=== PATIENT | female | born 1965 | race Caucasian/White ===

== ENCOUNTER 2022-04-14 13:20 | Emergency (ER) | payer OTHER, SELFPAY ==
--- NOTE | ~2022-04-14 | XR_ITS ---
EXAMINATION: XR foot LT min 3V DATE: 04/14/2022 13:59 INDICATION: Left foot pain, initial encounter TECHNIQUE: Dorsoplantar, lateral, and 2 oblique views of the left foot were obtained. COMPARISON: None. FINDINGS: There is an acute, traumatic, closed, transverse fracture in the proximal neck of the third proximal phalanx. The distal fracture fragment demonstrates approximately 1.5 mm of plantar dislocat ion. No additional acute osseous findings are evident. 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 IMPRESSION: 1. Acute, minimally displaced fracture in the proximal neck of the third proximal phalanx. Reviewed, dictated and finalized at location A. IMPRESSION: 1. Acute, minimally displaced fracture in the proximal neck of the third proxim al phalanx.
[2022-04-14 13:30] VITALS: BP 141/70; PULSE 82; RESP 12; TEMP 36.2; O2SAT 100
[2022-04-14 13:38] VITALS: BP 141/70; PULSE 82; RESP 12; TEMP 36.2; O2SAT 100
--- NOTE | 2022-04-14 14:18 | ED.LOWEXIN ---
HPI - Extremity Injury (Lower) General Chief Complaint: Extremity Injury, Lower Stated Complaint: left 3rd digit toe Time Seen by Provider: 04/14/22 14:18 Source: patient Mode of arrival: ambulatory Limitations: no limitations History of Present Illness HPI Narrative: 56 yo F presents with pain to L middle toe. Is concerned she fractured her toe. States she got up this AM and stubbed her toe. Is not sure what she even hit her toe on. Reports that toe looks bent. Is ambulatory on L foot. Took OTC pain medication prior to arrival. ROM decreased due to pain, distal neurovascular intact. All systems reviewed and negative except as noted above. Related Data Home Medications Medication Instructions Recorded Confirmed alprazolam 0.25 mg tablet 1 tablet PO QID 04/14/22 04/14/22 losartan 100 1 tablet PO DAILY 04/14/22 04/14/22 mg-hydrochlorothiazide 12.5 mg tablet venlafaxine 150 mg 1 cap PO DAILY 04/14/22 04/14/22 capsule,extended release 24 hr Allergies Allergy/AdvReac Type Severity Reaction Status Date / Time No Known Allergies Allergy Verified 04/14/22 13:45 Review of Systems Review of Systems: CONSTITUTIONAL: Denies fever, chills, or sweats. EYES: Denies visual changes, redness, or discharge. ENT: Denies rhinorrhea, congestion, sore throat, or otalgia. CARDIOVASCULAR: Denies chest pain, palpitations, or edema. RESPIRATORY: Denies cough or dyspnea. GASTROINTESTINAL: Denies abdominal pain, nausea, vomiting, or diarrhea. GENITOURINARY: Denies dysuria or hematuria. SKIN: Denies rash or itching. MUSCULOSKELETAL: Reports pain and swelling to left middle toe. NEUROLOGIC: Denies headache, numbness, or weakness. PSYCHIATRIC: Denies anxiety or depression. All other systems reviewed are negative, except as documented in HPI. [facility] Family History Family History (Updated 05/24/15 @ 10:03 by DOCTOR UNKNOWN) Mother Family history of kidney disease Family history of congestive heart failure Other Family history of allergic disorder Family history of cardiovascular disease Family history of malignant neoplasm Social History Social History Smoking status: Current every day smoker Alcohol intake: current Comments At time of signature, agree with nursing past medical, surgical, social and family history. There is no relevant family history pertinent to the presenting complaint. Exam Narrative: GENERAL: This is a well-nourished, well-developed patient, in no apparent distress. HEAD: normocephalic, atraumatic. EYES: PERRL. Sclera clear/white. Vision is grossly intact. EARS: External ears normal NOSE: External nose normal NECK: Neck supple, non-tender without lymphadenopathy, masses or thyromegaly. CARDIOVASCULAR: Regular rate and rhythm without murmurs, gallops, or rubs. RESPIRATORY: Clear to auscultation. Breath sounds equal bilaterally. No wheezes, rales, or rhonchi. SKIN: warm, Dry, intact with no suspicious lesions or rash, good texture and turgor. NEURO: awake, alert, and oriented to person, place and time. There were no obvious focal neurologic abnormalities. EXTREMITIES: Tenderness to proximal phalanx of left middle toe with swelling. Toe appears to be slightly dislocated. Neurovascularly intact. No color change. Course Course Level of Care: Express Care Visit Vital Signs Vital signs: Vital Signs Temperature 36.2 C L 04/14/22 13:30 Pulse Rate 82 04/14/22 13:30 Respiratory Rate 12 04/14/22 13:30 Blood Pressure 141/70 H 04/14/22 13:30 Pulse Oximetry 100 04/14/22 13:30 Temperature 36.2 C L 04/14/22 13:38 Pulse Rate 82 04/14/22 13:38 Respiratory Rate 12 04/14/22 13:38 Blood Pressure 141/70 H 04/14/22 13:38 Pulse Oximetry 100 04/14/22 13:38 Reviewed MDM - Extremity Injury (Lower) MDM Narrative Medical decision making narrative: Discussed x-ray results with patient. Offered crutches and a OCL splint but patient felt that was not necessary.
== END 2022-04-14 14:30 | disposition home or self-care (01) ==
PROVIDERS: Emergency Provider Nurse Practitioner Family
DX: S92.512A Displaced fracture of proximal phalanx of left lesser toe(s), initial encounter for closed fracture (principal); W22.8XXA Striking against or struck by other objects, initial encounter; F17.200 Nicotine dependence, unspecified, uncomplicated; F41.9 Anxiety disorder, unspecified; F32.A Depression, unspecified; I10 Essential (primary) hypertension
CPT/HCPCS: 73630; 99214; G0463

== ENCOUNTER 2022-05-23 09:21 | Outpatient (CLI) | payer OTHER, SELFPAY ==
--- NOTE | ~2022-05-23 | XR_ITS ---
XR foot LT min 3V DATE: 05/23/2022 09:43 INDICATION: Left third toe fracture TECHNIQUE: 4 views COMPARISON: 04/30/2022 left third toe 04/2022 left foot FINDINGS: There is periosteal reaction at the proximal phalanx of the third digit consistent with hea ling, without interval significant change in position or alignment since 04/2022. No other fracture or dislocation. IMPRESSION: Healing fracture of proximal phalanx of third digit Reviewed, dictated and finalized at location A.
== END 2022-05-23 09:22 | disposition home or self-care (01) ==
LOC: ANHIMG 09:25
PROVIDERS: PCP Family Medicine; Visit Provider Physician Assistant Surgical
DX: S92.502D Displaced unspecified fracture of left lesser toe(s), subsequent encounter for fracture with routine healing (principal)
CPT/HCPCS: 73630

== ENCOUNTER 2023-05-25 17:07 | Emergency (ER) | payer OTHER, SELFPAY ==
[2023-05-25 17:20] VITALS: BP 153/113; PULSE 90; RESP 16; TEMP 37.2; O2SAT 98
--- NOTE | 2023-05-25 17:20 | ED.CHESTPAIN ---
HPI - Chest Pain General Chief Complaint: Chest Pain Stated Complaint: chest pain Time Seen by Provider: 05/25/23 17:08 Source: patient History of Present Illness HPI narrative: Patient presents today complaining of sternal chest pain radiating to her back and bilateral jaw for the past hour felix. Denies shortness of breath, abdominal pain, or any additional symptoms. Denies any cardiac history except hypertension. Currently takes losartan/hydrochlorothiazide. Related Data Home Medications Medication Instructions Recorded Confirmed alprazolam 0.25 mg tablet 1 tablet PO QID 04/14/22 05/23/22 losartan 100 1 tablet PO DAILY 04/14/22 05/23/22 mg-hydrochlorothiazide 12.5 mg tablet venlafaxine 150 mg 1 cap PO DAILY 04/14/22 05/23/22 capsule,extended release 24 hr Allergies Allergy/AdvReac Type Severity Reaction Status Date / Time No Known Allergies Allergy Verified 05/23/22 09:53 Review of Systems Review of Systems: CONSTITUTIONAL: Denies body aches, fever, chills, or sweats. EYES: Denies visual changes, redness, or discharge. ENT: Denies rhinorrhea, congestion, sore throat, or otalgia. CARDIOVASCULAR: Denies palpitations, or edema.+ chest pain RESPIRATORY: Denies cough or dyspnea. GASTROINTESTINAL: Denies abdominal pain, nausea, vomiting, or diarrhea. GENITOURINARY: Denies dysuria or hematuria. SKIN: Denies rash, itching, or wounds. MUSCULOSKELETAL: Denies back pain, joint pain, or myalgia. NEUROLOGIC: Denies headache, numbness, tingling, or weakness. PSYCH: Denies depression or anxiety. [facility] Past Medical History Medical History History of bruising easily Hypertension Surgical History Surgical History History of cholecystectomy (~2014) Family History Family History Mother Family history of kidney disease Family history of congestive heart failure Other Family history of allergic disorder Family history of cardiovascular disease Family history of malignant neoplasm Social History Social History Smoking packs per day: 1 Smoking cigarettes per day: 20.0 Smoking status: Current every day smoker Alcohol intake: current Comments At time of signature, I have reviewed and agree with nursing past medical, surgical, social and family history unless otherwise noted. Please see nursing chart for further information. There is no relevant family history pertinent to the presenting complaint Exam Narrative: GENERAL: Ill-appearing, well-nourished, and in no acute distress. HEAD: Normocephalic, atraumatic. EYES: EOMI. No redness or drainage. Conjunctivae normal. ENT: Mucous membranes pink and moist. NECK: Normal AROM. CHEST: No respiratory distress. Clear to auscultation. HEART: Regular rate and rhythm. No murmur appreciated. Normal peripheral pulses. EXTREMITIES: Normal range of motion. No edema. SKIN: Warm, no rash. Capillary refill normal. Normal skin turgor. Diaphoretic NEURO: No focal deficits. Alert and oriented x3. Gait steady. PSYCH: Normal affect. No signs of depression or anxiety. Course Course Emergency Course: ST elevation on EKG. Patient emergently sent to [facility] via EMS. Level of Care: Express Care Visit Transfer Transfered to: [facility]: [facility] and Other Transfer rationale: Chest pain, ST-elevation Accepting physician: Vinh HOPPER - Chest Pain Differential Diagnosis Differential diagnosis: Likely pneumothorax, unstable angina pectoris, st elevation myocardial infarction, chest pain and other (Gastritis, pneumonia) ECG Data EKG #1: Attestation: I personally reviewed and interpreted this ECG as follows: ECG completion date: 05/25/23 ECG completion time: 17:12
--- NOTE | 2023-05-25 17:27 | ECG_ITS ---
Measurements Intervals [place] Rate: 90 P: 54 [place]: 160 QRS: 11 QRSD: 97 T: 35 QT: 326 QTc: 400 Interpretive Statements SINUS RHYTHM VENTRICULAR PREMATURE COMPLEX POSSIBLE LEFT ATRIAL ENLARGEMENT DELAYED PRECORDIAL R/S TRANSITION ANTEROLATERAL ST ELEVATION MYOCARDIAL INJURY- ACUTE BASELINE ARTIFACT- II, III, AVF, V5-V6 ABNORMAL ECG NO PREVIOUS ECG AVAILABLE FOR COMPARISON Electronically Signed On 05-25-2023 18:28:54 CDT by Billy Pat D.O.
--- NOTE | 2023-05-25 17:35 | ED.CHESTPAIN ---
HPI - Chest Pain General Chief Complaint: Chest Pain Stated Complaint: chest pain Time Seen by Provider: 05/25/23 17:08 Source: patient History of Present Illness HPI narrative: Patient is a 57-year-old female who presents to the ER with STEMI. Patient woke up with pain in her jaw at 1630. She then felt to move into her chest and down into her abdomen. It is also moving back into her shoulders bilaterally. No history of VA. She does have history of hypertension. Patient went to an urgent care where she was diagnosed with a STEMI. EMS was contacted and they brought her by ambulance. [employer] Wheel Truer activated in route. Patient reports pain is currently 3/10 and earlier was 9/10. No modifying factors. reports patient did have some jaw pain and abdominal pain over the last week but never any chest pain. Today was different. Related Data Home Medications Medication Instructions Recorded Confirmed alprazolam 0.25 mg tablet 1 tablet PO QID 04/14/22 05/25/23 losartan 100 1 tablet PO DAILY 04/14/22 05/25/23 mg-hydrochlorothiazide 12.5 mg tablet venlafaxine 150 mg 1 cap PO DAILY 04/14/22 05/25/23 capsule,extended release 24 hr Allergies Allergy/AdvReac Type Severity Reaction Status Date / Time No Known Allergies Allergy Verified 05/25/23 17:39 Review of Systems Review of Systems: All systems reviewed & are unremarkable except as noted in HPI and below Constitutional: Constitutional: Denies chills and Denies fever(s) ENT: Denies nasal congestion and Denies sore throat Cardiovascular: Cardiovascular: Reports chest pain, Denies rapid heart rate and Reports radiating jaw, neck or arm pain Respiratory: Respiratory: Denies cough and Denies dyspnea Gastrointestinal: Gastrointestinal: Reports abdominal pain, Denies nausea and Denies vomiting [facility] Past Medical History Medical History History of bruising easily Hypertension Surgical History Surgical History History of cholecystectomy (~2014) Family History Family History Mother Family history of kidney disease Family history of congestive heart failure Other Family history of allergic disorder Family history of cardiovascular disease Family history of malignant neoplasm Social History Social History Smoking packs per day: 1 Smoking cigarettes per day: 20.0 Smoking status: Current every day smoker Alcohol intake: current Exam Narrative: GENERAL: Well-appearing, well-nourished, and in no acute distress. HEAD: Normocephalic, atraumatic. ENT: Mucous membranes moist. NECK: Supple. CHEST: Clear to auscultation. No respiratory distress. HEART: Regular rate and rhythm. Normal peripheral pulses. ABDOMEN: Soft, nontender, nondistended. No pulsatile mass. EXTREMITIES: Normal range of motion. No edema. SKIN: Warm, dry, no rash. NEURO: Alert and oriented x3. PSYCH: Normal mood and affect. Course Vital Signs Vital signs: Vital Signs Temperature 98.9 F 05/25/23 17:20 Pulse Rate 90 05/25/23 17:20 Respiratory Rate 16 05/25/23 17:20 Blood Pressure 153/113 H 05/25/23 17:20 Pulse Oximetry 98 05/25/23 17:20 Oxygen Delivery Room Air 05/25/23 17:20 Temperature 98.9 F 05/25/23 17:20 Pulse Rate 90 05/25/23 17:20 Respiratory Rate 16 05/25/23 17:20 Blood Pressure 153/113 H 05/25/23 17:20 Pulse Oximetry 98 05/25/23 17:20 Oxygen Delivery Room Air 05/25/23 17:20 MDM - Chest Pain ECG Data EKG #1: ECG completion date: 05/25/23 ECG completion time: 17:33 EKG Interpretation: normal rate (89), sinus rhythm, ST depression (Inferior leads), ST elevation (aVL, V4 through V6), normal QRS, normal QT and NL axis Discharge Plan Discharge Cl
== END 2023-05-25 17:15 | disposition short-term general hospital (02) ==
PROVIDERS: Emergency Provider Nurse Practitioner; PCP Family Medicine
DX: R07.9 Chest pain, unspecified (principal); F17.210 Nicotine dependence, cigarettes, uncomplicated; I10 Essential (primary) hypertension; R94.31 Abnormal electrocardiogram [ECG] [EKG]
CPT/HCPCS: 93005; 99215; G0463

== ENCOUNTER 2023-05-25 17:29 | Inpatient (IN) | payer OTHER, SELFPAY ==
[2023-05-25] VITALS (21 sets, daily range): BP systolic 61–160; BP diastolic 37–124; PULSE 62–89; RESP 8–27; TEMP 36.6–36.7; O2SAT 95–100
--- NOTE | ~2023-05-25 | US_ITS ---
EXAMINATION: US arterial duplex LE RT DATE: 05/27/2023 15:45 INDICATION: Right groin hematoma after cardiac catheterization. TECHNIQUE: Multiple grayscale and Doppler ultrasound images of the right groin were obtained. COMPARISON: None FINDINGS: There is a 3.7 x 0.8 x 5.4 cm hematoma superficial to right common femoral artery. Right co mmon femoral artery is patent. No pseudoaneurysm. IMPRESSION: 1. No pseudoaneurysm. Reviewed, dictated and finalized at location A. IMPRESSION: 1. No pseudoaneurysm.
--- NOTE | ~2023-05-25 | US_ITS ---
EXAMINATION: US retroperitoneal duplex ltd DATE: 05/26/2023 12:02 INDICATION: Hypertension. TECHNIQUE: Multiple grayscale, color Doppler, and pulsed Doppler images of the kidneys and renal martell darlene were obtained. COMPARISON: Chest CT 05/25/2023 FINDINGS: The aorta peak systolic velocity was not measured. The right renal artery peak systolic velocity is 1 38 cm/s in the proximal segment, 109 cm/s in the mid segment, and 63 cm/s in the distal segment. The left renal artery peak systolic velocity is 60 cm/s in the proximal segment, 50 cm/s in the mid segme nt, and 180 cm/s in the distal segment. IMPRESSION: 1. No Doppler evidence of renal artery stenosis. The CTA from 05/25/2023 similarly shows no significa nt renal artery stenosis. Reviewed, dictated and finalized at location E. IMPRESSION: 1. No Doppler evidence of renal artery stenosis. The CTA from 05/25/2023 [facility] shows no significant renal artery stenosis.
--- NOTE | ~2023-05-25 | CT_ITS ---
EXAMINATION: CTA chest DATE: 05/25/2023 17:47 INDICATION: Chest pain. TECHNIQUE: Computed tomographic angiography (CTA) of the chest was performed with 100 mL Omnipaque-35 0 intravenous contrast. Automated exposure control and iterative reconstruction technique were employ ed. The dose-length product was 688.24 mGy-cm. Maximum intensity projection 3D-reconstructions of the aorta and other arteries were constructed by the technologist on a separate workstation. COMPARISON: None. FINDINGS: There is mild emphysema. The lungs demonstrate mild atelectasis. No pleural effusion. The h eart size is normal. No pericardial effusion. There is mild aortic atherosclerosis. No aneurysm or di ssection. There is no pulmonary embolus. There are changes of cholecystectomy. There is cortical thin manuel of the kidneys. There is mild thoracic spondylosis. IMPRESSION: 1. Aortic atherosclerosis. No aneurysm or dissection. 2. No pulmonary embolus. 3. Mild emphysema. 4. Mild atrophy of the kidneys. Reviewed, dictated and finalized at location E.
--- NOTE | ~2023-05-25 | US_ITS ---
EXAMINATION: US renal BI DATE: 05/27/2023 15:45 INDICATION: Elevated creatinine. TECHNIQUE: Multiple ultrasound grayscale images of the kidneys were obtained. COMPARISON: Chest CT 05/25/2023 FINDINGS: The right kidney measures 9.4 x 4.8 x 4.8 cm. The left kidney measures 9.2 x 4.6 x 4.9 cm. The kidney s demonstrate normal parenchymal echogenicity. There is cortical thinning of the kidneys. There is no hydronephrosis. The bladder is normal. IMPRESSION: 1. Mild atrophy of the kidneys. No hydronephrosis. Reviewed, dictated and finalized at location A.
--- NOTE | 2023-05-25 17:29 | ECG_ITS ---
Measurements Intervals [place] Rate: 89 P: 61 [place]: 153 QRS: 14 QRSD: 100 T: 25 QT: 347 QTc: 424 Interpretive Statements SINUS RHYTHM POSSIBLE LEFT ATRIAL ENLARGEMENT DELAYED PRECORDIAL R/S TRANSITION ANTEROLATERAL ST ELEVATION MYOCARIDAL INJURY- ACUTE BASELINE ARTIFACT- I, II, III, AVR, AVL, AVF ABNORMAL ECG COMPARED TO ECG 05/25/2023 17:12:35 NO SIGNIFICANT CHANGES Electronically Signed On 05-25-2023 18:31:59 CDT by Billy Pat D.O.
[2023-05-25 17:40] LABS: Basophils Absolute Auto 0.1 K/mm3 (0.0-0.1); Basophils Percent Auto 0.6 % (0.2-1.2); Eosinophils Percent Auto 0.2 % (0-4.4); Hematocrit 48.8 % (37.0-47.0); Hemoglobin 16.2 g/dL (12.0-15.0); Immature Granulocyte Absolute 0.23 K/mm3 (0.00-0.031); Immature Granulocyte Percent A 1.8 % (0-0.5); Lymphocytes Absolute Auto 3.25 K/mm3 (0.9-3.2); Lymphocytes Percent Auto 24.7 % (18.3-44.2); Mean Corpuscular HGB Conc 33.2 g/dl (32-36); Mean Corpuscular Hemoglobin 31.8 pg (26-34); Mean Corpuscular Volume 95.9 fl (80-100); Monocytes Absolute Auto 0.9 K/mm3 (0.1-0.6); Monocytes Percent Auto 6.8 % (2.6-8.5); Neutrophils Absolute Auto 8.7 K/mm3 (1.3-6.7); Neutrophils Percent Auto 65.9 % (45.5-73.1); Platelet Count Result 399 k/mm3 (150-375); Red Blood Count 5.09 M/mm3 (4.2-5.4); Red Cell Distribution Width 13.5 % (11.5-14.5); White Blood Count 13.1 K/mm3 (4.5-10.0)
--- NOTE | 2023-05-25 17:45 | ED.CHESTPAIN ---
HPI - Chest Pain General Chief Complaint: Chest Pain Stated Complaint: CP - STEMI CALLED PER EMS History of Present Illness HPI narrative: Patient is a 57-year-old female who presents to the ER with STEMI.? Patient woke up with pain in her jaw at 1630.? She then felt to move into her chest and down into her abdomen.? It is also moving back into her shoulders bilaterally.? No history of ND.? She does have history of hypertension.? Patient went to an urgent care where she was diagnosed with a STEMI.? EMS was contacted and they brought her by ambulance.? Ticket Collector Or Usher activated in route.? Patient reports pain is currently 01/18 and earlier was 07/21.? No modifying factors.? reports patient did have some jaw pain and abdominal pain over the last week but never any chest pain.? Today was different. Related Data Home Medications Medication Instructions Recorded Confirmed alprazolam 0.25 mg tablet 1 tablet PO QID PRN Anxiety 04/14/22 05/25/23 losartan 100 1 tablet PO DAILY 04/14/22 05/25/23 mg-hydrochlorothiazide 12.5 mg tablet venlafaxine 150 mg 1 cap PO DAILY 04/14/22 05/25/23 capsule,extended release 24 hr Allergies Allergy/AdvReac Type Severity Reaction Status Date / Time No Known Allergies Allergy Verified 05/25/23 17:39 Review of Systems Review of Systems: All systems reviewed & are unremarkable except as noted in HPI and below Constitutional: Constitutional: Denies chills, Denies fatigue and Denies fever(s) ENT: Denies nasal congestion and Denies sore throat Cardiovascular: Cardiovascular: Reports chest pain, Denies rapid heart rate and Reports radiating jaw, neck or arm pain Respiratory: Respiratory: Denies cough and Denies dyspnea Gastrointestinal: Gastrointestinal: Reports abdominal pain, Denies nausea and Denies vomiting Neurologic: Denies focal weakness and Denies numbness PMFSH Past Medical History Medical History History of bruising easily Hypertension Surgical History Surgical History History of cholecystectomy (~2014) Family History Family History Mother Family history of kidney disease Family history of congestive heart failure Other Family history of allergic disorder Family history of cardiovascular disease Family history of malignant neoplasm Social History Social History Smoking packs per day: 1 Smoking cigarettes per day: 20.0 Smoking status: Current every day smoker Alcohol intake: current Exam Narrative: GENERAL: Well-appearing, well-nourished, and in no acute distress. HEAD: Normocephalic, atraumatic. EYES: PERRL and EOMI. ENT: Mucous membranes moist. CHEST: Clear to auscultation. No respiratory distress. HEART: Regular rate and rhythm. Normal peripheral pulses. ABDOMEN: Soft, nontender, nondistended, no pulsatile mass. EXTREMITIES: Normal range of motion. No edema. SKIN: Warm, dry, no rash. NEURO: Alert and oriented x3. PSYCH: Normal mood and affect. Course Course Emergency Course: Patient returned from CT. Discussed with radiology and there is no evidence of dissection. Cath team at bedside. Patient will given oral Brilinta 180 mg as well as IV heparin 4000 units. Patient's also educated on diagnosis and treatment plan. He has been taken to the ICU waiting room. Vital Signs Vital signs: Vital Signs Temperature 97.9 F 05/25/23 17:29 Pulse Rate 89 05/25/23 17:29 Respiratory Rate 18 05/25/23 17:29 Blood Pressure 160/93 H 05/25/23 17:29 Pulse Oximetry 96 05/25/23 17:29 Oxygen Delivery Room Air 05/25/23 17:29 Temperature 97.9 F 05/25/23 17:29 Pulse Rate 88 05/25/23 18:03 Respiratory Rate 20 05/25/23 18:03 Blood Pressure 160/93 H 05/25/23 17:29 Pulse Oxi
[2023-05-25 17:53] LABS: INR 0.8; Prothrombin Time 11.5 Seconds (11.1-14.7)
[2023-05-25 17:54] LABS: Partial Thromboplastin Time 28.5 SECONDS (22.3-36.8)
--- NOTE | 2023-05-25 18:00 | PC.NURSE ---
1757 180mg of Brilinta po and 4000 units of Heparin IV push given prior of sending to mill laborer.
[2023-05-25 18:04] LABS: LDL Cholesterol Direct 126 mg/dL
[2023-05-25 18:18] LABS: Alanine Aminotransferase 27 U/L (6-35); Albumin Level 4.5 g/dL (3.5-5.1); Alkaline Phosphatase 75 U/L (38-126); Anion Gap 9 mmol/L (8-16); Aspartate Amino Transferase 31 U/L (14-36); Bilirubin,Total 0.5 mg/dL (0.2-1.3); Blood Urea Nitrogen 34 mg/dL (7-17); Calcium 10.6 mg/dL (8.4-10.2); Carbon Dioxide 30 mmol/L (22-30); Chloride 99 mmol/L (98-107); Cholesterol 274 mg/dL (0-200); Estimated CRCL calculation 41 ml/min; Estimated Glomerular Filt Rate 36; Glucose 123 mg/dL (65-110); HDL Direct 72 mg/dL; Potassium 4.5 mmol/L (3.4-5.0); Sodium 138 mmol/L (137-145); Triglycerides 200 mg/dL (<150); Troponin I 0.059 ng/mL (0.000-0.034)
--- NOTE | 2023-05-25 19:01 | WPDCARDPROC ---
Cardiac Cath Procedure Note Date of procedure:: 05/25/23 Performing physician:: Tereso Walter MD Indication:: acute myocardial infarction Brief clinical history:: this is a 57-year-old woman without prior cardiac history. She has a history of hypertension smoking. She woke up from a nap this afternoon at her with significant chest pain. 911 was called ECG per EMS is diagnostic of acute anterior wall ND. She was brought to the laborer operator following activation of STEMI. Procedure Procedure performed:: Emergency coronary angiography emergency PCI(IAN) to the proximal LAD left ventriculography Sedation/Medication given:: fentanyl 50 mg Versed 2 mg case start time 6:12 p.m. case end time 6:41 p.m. sedation provided by Elida Saavedra RN, trained observer Access site:: right femoral artery Estimated blood loss:: 30 cc Procedure note:: patient was brought to the cardiac catheterization lab in the emergency setting above. The right femoral triangle was prepared and draped in the normal fashion. Anesthesia was provided with 1% lidocaine infiltrated locally. Using the modified Seldinger technique a 6 Gren[place] sheath was placed into the right femoral artery. After this I used a [place] JR4 to engage inject the right coronary artery orthogonal projections. Then a 6 [place] CLS 3.5 guiding catheter was used to engage the left coronary artery for angiography in multiple projections. The cineangiograms were then reviewed after this PCI of the proximal LAD was recommended and carried out as detailed below. Prior to PCI the patient bolus intravenous bivalirudin. She had received 325 mg of aspirin and 180 mg of Brilinta in the emergency department. Following completion PCI I used a 5 [place] angled pigtail catheter to measure left-sided hemodynamics and perform a left ventriculogram in the [place] projection. procedure was then terminated sheath was sutured into position and the patient was taken to the ICU for post ND PCI recovery. Procedure was well tolerated and uncomplicated. She was no evidence of groin hematoma when she left the cardiac catheterization lab. Findings:: Hemodynamics: Central aortic pressure is 195 over 96 left ventricle 195/8 end-diastolic pressure 42 there is no gradient on pullback across the aortic valve. Left ventricle: There is concentric LVH identified there is akinesis of the anterior wall apex and apical inferior segment. The global ejection fraction is visually estimated at 40%. The mitral valve is competent. The left main coronary artery is large in caliber and widely patent the left anterior descending is a large caliber artery that is 100% occluded proximally. Angiographic appearance of this is consistent with an acute thrombotic occlusion. The circumflex is a moderate caliber giving rise to the marginal branches. The circumflex is remarkable for modest luminal irregularities but no flow-limiting disease was identified. The right coronary artery is very large caliber and dominant to the posterior circulation the right coronary artery is angiographically free of disease. Intervention: I used a 0.014 BMW coronary guidewire to traverse the occlusion of the LAD. The wire was advanced distal to the occlusion and was tracking into a diagonal branch. I then pre-dilated the lesion using a 3 x 20 mm Stoney angioplasty balloon. This restored ALEXX 3 flow in the LAD. I could then in the URDU cranial projection visualize the position of the guidewire. I redirected the guidewire into the LAD proper. Following this the target lesion was stented using a 3.5 x 22 mm Orsiro stent deployed at 12 atmospheres for 60 seconds. At the conclusion of this the LAD was widely patent with no residual stenosis disruption dissection or distal embolization. There was ALEXX 3 flow restored down to the apex. Conclusion:: 1. Right coronary dominant circulation with acute anterior wall myocardial infarc
--- NOTE | 2023-05-25 19:09 | PM.IMHP ---
H&P: HPI History of Present Illness Date/Time: 05/25/23 19:09 Chief Complaint: chest pain Narrative: this is a 57-year-old woman unknown to me prior to this encounter. She is being seen in the cardiac catheterization lab as she is being prepared for emergency angiography in the setting of acute anterior wall [place]. She apparently has a history of hypertension and cigarette smoking and no previous cardiac events. She does not have any history of diabetes or dyslipidemia of which she has been made aware. She states she was taking a nap at her home this afternoon and woke up with significant chest pain. Electrocardiogram done by EMS in the field indicate clear evidence of acute anterior wall [place]. Review of Systems Review of Systems: ROS unobtainable: Yes unobtainable due to medical condition PMFSH Past Medical History Medical History History of bruising easily Hypertension Surgical History Surgical History History of cholecystectomy (~2014) Family History Family History Mother Family history of kidney disease Family history of congestive heart failure Other Family history of allergic disorder Family history of cardiovascular disease Family history of malignant neoplasm Social History Social History Smoking packs per day: 1 Smoking cigarettes per day: 20.0 Smoking status: Current every day smoker Alcohol intake: current Meds Home Medications and Allergies Home Medications Medication Instructions Recorded Confirmed Type alprazolam 0.25 mg tablet 1 tablet PO QID 04/14/22 05/25/23 History losartan 100 1 tablet PO DAILY 04/14/22 05/25/23 History mg-hydrochlorothiazide 12.5 mg tablet venlafaxine 150 mg 1 cap PO DAILY 04/14/22 05/25/23 History capsule,extended release 24 hr Allergies Allergy/AdvReac Type Severity Reaction Status Date / Time No Known Allergies Allergy Verified 05/25/23 17:39 Vital Signs Vital Signs - 24 hr 05/25/23 17:29 05/25/23 17:36 05/25/23 17:38 Temperature 36.6 C Pulse Rate 89 88 Respiratory Rate 18 Blood Pressure 160/93 H Pulse Oximetry 96 99 Oxygen Delivery Room Air Room Air 05/25/23 17:38 05/25/23 18:03 Temperature Pulse Rate 88 Respiratory Rate 20 Blood Pressure Pulse Oximetry 99 99 Oxygen Delivery Room Air Exam Const: General: uncomfortable Other: well-developed well-nourished overweight white female in moderate distress with chest pain HENMT: Mouth: Yes moist mucous membranes Eyes: Sclera: sclerae normal Neck: Neck: supple and no JVD Other: carotid impulses are unremarkable bilateral Resp: Effort & Inspection: normal respiratory effort Auscultation: clear to auscultation bilaterally Cardio: Rate: regular rate Rhythm: regular rhythm Other: PMI nondisplaced first second heart sounds rub S4 is evident GI: GI Palp: Yes Soft to palpation Auscultation: normal bowel sounds Skin: General skin exam: normal color Neuro: Other: alert oriented x3 Extrem: Other: no edema, good distal perfusion H&P: Results Labs Labs: Short CBC 05/25/23 Range/Units 17:35 WBC 13.1 H (4.5-10.0) K/mm3 Hgb 16.2 H (12.0-15.0) g/dL Hct 48.8 H (37.0-47.0) % Plt Count 399 H (150-375) k/mm3 BMP 05/25/23 17:35 Sodium 138 Potassium 4.5 Chloride 99 Carbon Dioxide 30 BUN 34 H Creatinine 1.50 H Glucose 123 H Calcium 10.6 H Cardiac Enzymes 05/25/23 Range/Units 17:35 Troponin I 0.059 H* (0.000-0.034) ng/mL Liver Function 05/25/23 Range/Units 17:35 Total Bilirubin 0.5 (0.2-1.3) mg/dL AST 31 (14-36) U/L ALT 27 (6-35) U/L Alkaline Phosphatase 75 (38-126) U/L Albumin 4.5 (3
--- NOTE | 2023-05-25 19:46 | ADMGEN ---
This patient, Margie Marroquin, was admitted to Intensive Care Unit-5. Patient/family oriented to hospital policies and general routines including ID bracelet, bed and alarms, visiting hours, pain management, procedures, bathroom and other care routines, personal items, smoking policy, room service/diet, and visiting hours. Information on how to activate the Rapid Response Team has been discussed. Patient/Family are encouraged to report perceived risks to care and to ask questions if they do not understand what they are told or what they should do. Arrival time 1909.
--- NOTE | 2023-05-25 20:18 | ECG_ITS ---
Measurements Intervals [place] Rate: 69 P: 53 CO: 169 QRS: 35 QRSD: 102 T: 74 QT: 387 QTc: 416 Interpretive Statements SINUS RHYTHM VENTRICULAR PREMATURE COMPLEX BASELINE ARTIFACT- I II, III, AVR, AVL, AVF, V1-V6 BORDERLINE ECG COMPARED TO ECG 05/25/2023 17:33:25 ACUTE INJURY RESOLVED Electronically Signed On 05-26-2023 8:02:34 CDT by Billy Pat D.O.
[2023-05-25 21:24] LABS: Troponin I > 80.000 ng/mL (0.000-0.034)
[2023-05-25 21:26] LABS: Cholesterol 246 mg/dL (0-200); HDL Direct 67 mg/dL; Triglycerides 170 mg/dL (<150)
[2023-05-25 21:37] LABS: LDL Cholesterol Direct 121 mg/dL
[2023-05-25] MEDS: ONDANSETRON INJ 4 MG/2 ML VIAL IV PUSH (21:52)
[2023-05-25] MEDS: LABETALOL HCL INJ 100 MG/20 ML VIAL 20 MG IV PUSH (21:52)
[2023-05-25] MEDS: SODIUM CHLORIDE 0.9% IV 1,000 ML 999 ML IV CONT (23:35)
[2023-05-26] VITALS (32 sets, daily range): BP systolic 95–158; BP diastolic 58–119; PULSE 62–95; RESP 9–18; TEMP 36.5–36.6; O2SAT 95–100
[2023-05-26 01:38] LABS: Basophils Absolute Auto 0.1 K/mm3 (0.0-0.1); Basophils Percent Auto 0.4 % (0.2-1.2); Eosinophils Absolute Auto 0.1 K/mm3 (0-0.3); Eosinophils Percent Auto 0.4 % (0-4.4); Hematocrit 39.7 % (37.0-47.0); Immature Granulocyte Absolute 0.24 K/mm3 (0.00-0.031); Immature Granulocyte Percent A 1.4 % (0-0.5); Lymphocytes Absolute Auto 3.41 K/mm3 (0.9-3.2); Lymphocytes Percent Auto 19.5 % (18.3-44.2); Mean Corpuscular HGB Conc 32.7 g/dl (32-36); Mean Corpuscular Hemoglobin 31.9 pg (26-34); Mean Corpuscular Volume 97.3 fl (80-100); Monocytes Absolute Auto 1.8 K/mm3 (0.1-0.6); Neutrophils Percent Auto 68.3 % (45.5-73.1); Platelet Count Result 345 k/mm3 (150-375); Red Blood Count 4.08 M/mm3 (4.2-5.4); Red Cell Distribution Width 13.2 % (11.5-14.5); White Blood Count 17.5 K/mm3 (4.5-10.0)
[2023-05-26 02:08] LABS: Troponin I > 80.000 ng/mL (0.000-0.034)
--- NOTE | 2023-05-26 05:11 | ECG_ITS ---
Measurements Intervals [place] Rate: 74 P: -28 [place]: 141 QRS: 48 QRSD: 96 T: 74 QT: 399 QTc: 445 Interpretive Statements SINUS RHYTHM ANTERIOR ST ELEVATION INJURY, PROBABLY RECENT ABNORMAL ECG COMPARED TO ECG 05/25/2023 20:03:01 ST ELEVATION INJURY IN EVOLUTION Electronically Signed On 05-26-2023 8:16:16 CDT by Billy Pat D.O.
[2023-05-26] MEDS: carvediloL 6.25 MG TABLET PO ×2 (07:51→20:14)
[2023-05-26] MEDS: ASPIRIN 81 MG CHEWABLE TABLET PO (07:51)
[2023-05-26] MEDS: TICAGRELOR 90 MG TABLET PO ×2 (07:52→20:14)
[2023-05-26] MEDS: LOSARTAN POTASSIUM 25 MG TABLET 50 MG PO (07:52)
[2023-05-26] MEDS: ROSUVASTATIN 10 MG TABLET 20 MG PO (07:52)
[2023-05-26] MEDS: VENLAFAXINE HCL XR 75 MG CAP.ER.24H 150 MG PO (09:10)
[2023-05-26 09:23] LABS: Hemoglobin 12.4 g/dL (12.0-15.0); Mean Corpuscular HGB Conc 32.6 g/dl (32-36); Mean Corpuscular Hemoglobin 31.2 pg (26-34); Mean Corpuscular Volume 95.5 fl (80-100); Platelet Count Result 341 k/mm3 (150-375); Red Blood Count 3.98 M/mm3 (4.2-5.4); Red Cell Distribution Width 13.3 % (11.5-14.5); White Blood Count 15.1 K/mm3 (4.5-10.0)
[2023-05-26 09:29] LABS: Alanine Aminotransferase 44 U/L (6-35); Albumin Level 3.6 g/dL (3.5-5.1); Alkaline Phosphatase 85 U/L (38-126); Anion Gap 3 mmol/L (8-16); Aspartate Amino Transferase 188 U/L (14-36); Bilirubin,Total 0.4 mg/dL (0.2-1.3); Blood Urea Nitrogen 26 mg/dL (7-17); Calcium 9.7 mg/dL (8.4-10.2); Carbon Dioxide 28 mmol/L (22-30); Chloride 104 mmol/L (98-107); Creatine Kinase 872 U/L (30-135); Estimated CRCL calculation 37 ml/min; Estimated Glomerular Filt Rate 42; Glucose 125 mg/dL (65-110); Magnesium 2.1 mg/dL (1.6-2.3); Potassium 4.2 mmol/L (3.4-5.0); Sodium 135 mmol/L (137-145)
[2023-05-26 09:36] LABS: NT Pro B Type Natriuretic Pept 10800 pg/mL (19.9-100)
[2023-05-26] MEDS: ONDANSETRON INJ 4 MG/2 ML VIAL IV PUSH ×2 (09:37→14:05)
--- NOTE | 2023-05-26 10:20 | WPDCNINT ---
Assessment and Plan Assessment and plan (1) ST elevation (STEMI) myocardial infarction: Code(s): I21.3 - ST elevation (STEMI) myocardial infarction of unspecified site Status: Acute Assessment and Plan: Status post PCI of LAD with drug-eluting stent. Currently chest pain-free Continue aspirin beta-mikayla losartan Brilinta and statin (2) Hematoma following procedure: Status: Acute Assessment and Plan: Patient developed hematoma after removal arterial sheath. Patient had a transient drop in blood pressure. Form Setter was called overnight and patient was given 1 L fluid bolus and femstop was applied Going appears soft at this time although has bruising Hemoglobin was checked following the bleed and this morning and appears relatively stable Patient asymptomatic and hemodynamically stable Continue to monitor (3) Tobacco abuse: Code(s): Z72.0 - Tobacco use Status: Acute Assessment and Plan: Patient was counseled and encouraged to quit smoking. She states she will make an attempt (4) Elevated serum creatinine: Code(s): R79.89 - Other specified abnormal findings of blood chemistry Status: Acute Assessment and Plan: Patient presented with creatinine 1.5. She has had longstanding hypertension. Baseline creatinine unknown but I suspect patient may have chronic kidney disease. CT of chest showed mild atrophy of the kidneys Ultrasound Doppler of kidneys is ordered Check CK urine electrolytes and UA Creatinine checked this morning was improved to 1.3 Monitor urine output electrolytes and creatinine Hold IV fluids [place] [address] (5) Hypertension: Code(s): I10 - Essential (primary) hypertension Status: Acute Assessment and Plan: Continue losartan and Coreg P.r.n. labetalol (6) Congestive heart failure: Code(s): I50.9 - Heart failure, unspecified Status: Acute Assessment and Plan: Patient had elevated LVED[place] cardiac [place] [address] [place] scan did not show any pulmonary edema Will hold diuretics at this time since patient also had drop in her hemoglobin and had elevated creatinine Echo is pending Plan DVT prophylaxis -SCDs Nutrition -heart healthy diet Code Status - Full Code Total Critical Care Time - 35 minutes Due to a high probability of clinically significant, life threatening deterioration, the patient required my highest level of preparedness to intervene emergently and I personally spent this critical care time directly and personally managing the patient. This critical care time included obtaining a history; examining the patient; pulse oximetry; ordering and review of studies; arranging urgent treatment with development of a management plan; evaluation of patient's response to treatment; frequent reassessment; and discussions with other providers. It was exclusive of separately billable procedures and treating other patients and teaching time. Please see Assessment and Plan section and the rest of the note for further information on patient assessment and treatment Network Security Administrator Consult Note Consult date: 05/26/23 Reason for consult: STEMI HPI: Margie Marroquin is a 57 year old female with past medical history of depression hypertension and smoking presented with chief complaint of chest pain. Patient woke up with chest pain which was in the middle of the chest dated to her jaw, pain was aching, 8/10, she felt nauseous but no vomiting. No associated shortness of breath palpitation dizziness or light. On arrival to ER patient was found to be having ST segment elevation on her EKG and Cardiology was consulted. Patient also underwent CTA which was negative for PE and showed 1. Aortic atherosclerosis. No aneurysm or dissection. 2. No pulmonary embolus. 3. Mild emphysema. 4. Mild atrophy of the kidneys. Patient was taken to cardiac catheterization lab and underwent PCI pr
--- NOTE | 2023-05-26 10:37 | PM.IMPN ---
Progress Note: A&P Assessment and Plan (1) ST elevation (STEMI) myocardial infarction: Code(s): I21.3 - ST elevation (STEMI) myocardial infarction of unspecified site Status: Acute Assessment and Plan: Status post stent placement. (2) Hematoma following procedure: Status: Acute Assessment and Plan: Monitor (3) Tobacco abuse: Code(s): Z72.0 - Tobacco use Status: Acute (4) Elevated serum creatinine: Code(s): R79.89 - Other specified abnormal findings of blood chemistry Status: Acute (5) Hypertension: Code(s): I10 - Essential (primary) hypertension Status: Acute Subjective Date/time seen: 05/26/23 10:37 Interval history: Feeling okay today. Exam Narrative: General: Pt is alert awake and in NAD Lungs/Chest: Trachea central Clear BS B/L, No crackles or wheezing. Cardiac: RRR. Normal S1 S2. No murmurs Circulation: Pedal pulses are intact and symmetrical. Right groin shows large area of bruising and hematoma. The abdomen does not feel firm or tender. No bruising on the flanks Abdomen: Normal bowel sounds.. Soft. NT. ND. Extremities: No clubbing, cyanosis or edema. Warm : Estrada in place Neurologic: Follows commands. Moves all 4 extremities PERRL Skin: No Rash Objective Data Vital Signs Vital Signs: Vital Signs - 24 hr 05/25/23 17:29 05/25/23 17:36 05/25/23 17:38 Temperature 97.9 F Pulse Rate 89 88 Respiratory Rate 18 Blood Pressure 160/93 H Pulse Oximetry 96 99 Oxygen Delivery Room Air Room Air Oxygen Flow Rate 05/25/23 17:38 05/25/23 18:03 05/25/23 21:52 Temperature Pulse Rate 88 78 Respiratory Rate 20 Blood Pressure Pulse Oximetry 99 99 Oxygen Delivery Room Air Oxygen Flow Rate 05/25/23 22:45 05/25/23 22:57 05/25/23 23:02 Temperature Pulse Rate 74 65 65 Respiratory Rate 13 17 17 Blood Pressure 128/77 113/66 113/66 Pulse Oximetry 98 97 97 Oxygen Delivery Oxygen Flow Rate 05/25/23 23:07 05/25/23 23:12 05/25/23 23:17 Temperature Pulse Rate 71 71 78 Respiratory Rate 12 14 19 Blood Pressure 136/124 H 102/73 110/78 Pulse Oximetry 97 97 98 Oxygen Delivery Oxygen Flow Rate 05/25/23 23:22 05/25/23 23:25 05/25/23 23:40 Temperature Pulse Rate 73 71 71 Respiratory Rate 16 18 14 Blood Pressure 105/78 106/72 118/76 Pulse Oximetry 98 97 100 Oxygen Delivery Oxygen Flow Rate 05/25/23 23:30 05/25/23 23:35 05/25/23 23:45 Temperature Pulse Rate 82 83 66 Respiratory Rate 12 27 H 14 Blood Pressure 77/37 L 61/52 L 121/97 H Pulse Oximetry 98 98 100 Oxygen Delivery Oxygen Flow Rate 05/25/23 23:50 05/25/23 23:55 05/26/23 00:00 Temperature Pulse Rate 62 65 67 Respiratory Rate 8 L 11 L 14 Blood Pressure 147/101 H 152/84 H 153/69 H Pulse Oximetry 100 100 100 Oxygen Delivery Oxygen Flow Rate 05/26/23 00:05 05/26/23 00:10 05/26/23 00:15 Temperature Pulse Rate 66 64 62 Respiratory Rate 12 14 15 Blood Pressure 143/67 H 149/67 H 143/72 H Pulse Oximetry 100 100 100 Oxygen Delivery Oxygen Flow Rate 05/26/23 00:20 05/26/23 00:25 05/26/23 00:30 Temperature Pulse Rate 62 63 65 Respiratory Rate 16 13 11 L Blood Pressure 156/63 H 138/73 148/65 H Pulse Oximetry 100 100 100 Oxygen Delivery Oxygen Flow Rate 05/26/23 00:45 05/26/23 01:00 05/25/23 20:00 Temperature Pulse Rate 65 64 66 Respiratory Rate 17 15 Blood Pressure 124/67 126/71 Pulse Oximetry 99 100 Oxygen Delivery Oxygen Flow Rate 05/25/23 22:00 05/26/23 00:00 05/26/23 02:00 Temperature Pulse Rate 66 66 67 Respiratory Rate Blood Pressure Pulse Oximetry Oxygen Delivery Oxygen Flow Rate 05/25/23 20:00 05/25/23 20:00 05/25/23 22:00 Temperature 98.0 F Pulse Rate 70 66 Respiratory Rate 16 13 Blood Pressure 137/80 142/73 H Pulse Oximetry 96 95 Oxygen Delivery Room Air Oxygen Flow Rate
--- NOTE | 2023-05-26 11:28 | PC.NURSE ---
[facility] Re[facility] Services flyer was given to patient.
--- NOTE | 2023-05-26 13:45 | PM.PNCARD ---
Progress Note: A&P Assessment and Plan (1) ST elevation (STEMI) myocardial infarction: Code(s): I21.3 - ST elevation (STEMI) myocardial infarction of unspecified site Status: Acute Plan 57-year-old female with acute anterior wall DC interrupted with emergency PCI yesterday. Troponin shows very large rise indicative of significant area of infarction which is also consistent with the appearance of her left ventriculogram. She is on appropriate guideline directed medical therapy at this time. Relatively hypertensive today will advanced the dosage of her losartan. Okay to move her to IMU. Anticipate at least a couple of more days in the hospital prior to discharge considering a large anterior infarction has occurred Tereso Walter MD [facility] Subjective Date/time seen: Date of service: 05/26/23 13:45 Interval history: Follow-up visit in this 57-year-old lady with: Coronary artery disease presenting last night with acute ST-elevation DC of the anterior wall. Underwent emergency PCI with stenting of totally occluded proximal LAD with good angiographic result. She is resting comfortably in the ICU this morning. Following sheath removal she did have a significant hematoma develop in the right groin. Hemoglobin reduced modestly. Exam Const: General: comfortable and no acute distress HENMT: Mouth: Yes moist mucous membranes Eyes: Sclera: sclerae normal Neck: Neck: supple and no JVD Resp: Effort & Inspection: normal respiratory effort Auscultation: clear to auscultation bilaterally Cardio: Rate: regular rate Rhythm: regular rhythm GI: GI Palp: Yes Soft to palpation Auscultation: normal bowel sounds Skin: General skin exam: normal color Neuro: Other: Alert and oriented x3 Extrem: Other: Significant hematoma ecchymosis at the right groin puncture site in the right thigh. Objective Data Vital Signs Vital Signs: Vital Signs - 24 hr 05/25/23 17:29 05/25/23 17:36 05/25/23 17:38 Temperature 36.6 C Pulse Rate 89 88 Respiratory Rate 18 Blood Pressure 160/93 H Pulse Oximetry 96 99 Oxygen Delivery Room Air Room Air Oxygen Flow Rate 05/25/23 17:38 05/25/23 18:03 05/25/23 21:52 Temperature Pulse Rate 88 78 Respiratory Rate 20 Blood Pressure Pulse Oximetry 99 99 Oxygen Delivery Room Air Oxygen Flow Rate 05/25/23 22:45 05/25/23 22:57 05/25/23 23:02 Temperature Pulse Rate 74 65 65 Respiratory Rate 13 17 17 Blood Pressure 128/77 113/66 113/66 Pulse Oximetry 98 97 97 Oxygen Delivery Oxygen Flow Rate 05/25/23 23:07 05/25/23 23:12 05/25/23 23:17 Temperature Pulse Rate 71 71 78 Respiratory Rate 12 14 19 Blood Pressure 136/124 H 102/73 110/78 Pulse Oximetry 97 97 98 Oxygen Delivery Oxygen Flow Rate 05/25/23 23:22 05/25/23 23:25 05/25/23 23:40 Temperature Pulse Rate 73 71 71 Respiratory Rate 16 18 14 Blood Pressure 105/78 106/72 118/76 Pulse Oximetry 98 97 100 Oxygen Delivery Oxygen Flow Rate 05/25/23 23:30 05/25/23 23:35 05/25/23 23:45 Temperature Pulse Rate 82 83 66 Respiratory Rate 12 27 H 14 Blood Pressure 77/37 L 61/52 L 121/97 H Pulse Oximetry 98 98 100 Oxygen Delivery Oxygen Flow Rate 05/25/23 23:50 05/25/23 23:55 05/26/23 00:00 Temperature Pulse Rate 62 65 67 Respiratory Rate 8 L 11 L 14 Blood Pressure 147/101 H 152/84 H 153/69 H Pulse Oximetry 100 100 100 Oxygen Delivery Oxygen Flow Rate 05/26/23 00:05 05/26/23 00:10 05/26/23 00:15 Temperature Pulse Rate 66 64 62 Respiratory Rate 12 14 15 Blood Pressure 143/67 H 149/67 H 143/72 H Pulse Oximetry 100 100 100 Oxygen Delivery Oxygen Flow Rate 05/26/23 00:20 05/26/23 00:25 05/26/23 00:30 Temperature Pulse Rate 62 63 65 Respiratory Rate 16 13 11 L Blood Pressure 156/63 H 138/73 148/65 H Pulse Oximetry 100 100 100 Oxygen Delivery Oxygen Flow Rate 05/26/23 00:45 05/26/23 01:00
[2023-05-26 14:25] LABS: Glucose Point of Care 174 mg/dl (65-105)
[2023-05-26 14:34] LABS: Hematocrit 38.1 % (37.0-47.0); Hemoglobin 12.7 g/dL (12.0-15.0); Mean Corpuscular HGB Conc 33.3 g/dl (32-36); Mean Corpuscular Hemoglobin 31.5 pg (26-34); Mean Corpuscular Volume 94.5 fl (80-100); Mean Platelet Volume 9.9 fl (7.4-10.4); Platelet Count Result 368 k/mm3 (150-375); Red Blood Count 4.03 M/mm3 (4.2-5.4); Red Cell Distribution Width 13.2 % (11.5-14.5); White Blood Count 18.9 K/mm3 (4.5-10.0)
[2023-05-26] MEDS: HYDROcodone/acetaminophen (*CRX) 5-325 MG TABLET 1 TAB PO (14:42)
--- NOTE | 2023-05-26 16:38 | PC.NURSE ---
Medication cards given to patient for education on new medications.
--- NOTE | 2023-05-26 17:48 | PC.NURSE ---
Patient ambulated to bathroom with steady gait around 1430. She felt she needed to have a bowel movement and complained of stomach cramps across her lower stomach. While in the bathroom patient became diaphoretic, dizzy, and extremely nauseated. Patient returned to bed via wheelchair. Blood glucose obtained results 174. After return to bed patient was placed on bedpan. After patient had a bowel movement and received pain medication she felt much better.
[2023-05-26 18:32] LABS: Appearance Urine Clear (Clear); Bacteria Urine None Seen /hpf; Bilirubin Urine Negative (Negative); Blood Urine Trace (Negative); Color Urine Yellow (Yellow); Glucose Urine UA Negative (Negative); Ketones Urine Negative (Negative); Leukocyte Esterase Ur Negative LEU/UL (Negative); Nitrate Urine Negative (Negative); Protein Urine Trace mg/dL (Negative); RBC Urine 0-2 /hpf (0-2); Squamous Epithelial Cell Urine Occasional /hpf (Few); WBC Urine 0-5 /hpf; pH Urine 5.5 (5.0-9.0)
[2023-05-26 18:33] LABS: Add Urine Microscopic? YES; Specific Grav Ur 1.038 (1.001-1.035)
[2023-05-26 18:51] LABS: Creatinine Urine 99.6 mg/dL
[2023-05-26 18:59] LABS: Sodium Urine Random 81 meq/L
--- NOTE | 2023-05-26 21:42 | ECG_ITS ---
Measurements Intervals [place] Rate: 82 P: 48 [place]: 163 QRS: 13 QRSD: 90 T: 72 QT: 348 QTc: 409 Interpretive Statements SINUS RHYTHM ANTEROLATERAL ST ELEVATION INJURY- RECENT BASELINE ARTIFACT- I, III, AVL ABNORMAL ECG COMPARED TO ECG 05/26/2023 07:18:17 NO SIGNIFICANT CHANGES Electronically Signed On 05-27-2023 6:53:31 CDT by Billy Pat D.O.
[2023-05-26] MEDS: NITROGLYCERIN SL 0.4 MG TABLET SUBLINGUAL ×2 (21:45→21:50)
[2023-05-26] MEDS: ALPRAZolam (*CRX) 0.5 MG TABLET PO (22:17)
--- NOTE | 2023-05-26 23:18 | PC.NURSE ---
2135: Patient reporting CP. EKG obtained. Nitro administered x2. Symptoms resolve. Patient reported anxiety. MD Khan notified. Order for anxiety medication obtained.
[2023-05-27] VITALS (13 sets, daily range): BP systolic 93–147; BP diastolic 48–86; PULSE 68–115; RESP 10–25; TEMP 36.2–36.7; O2SAT 95–99; BMI 27.6
--- NOTE | 2023-05-27 | ECHO_ITS ---
Patient Info Name: Margie Marroquin Age: 57 years : 1965 Gender: Female Ht: 64 in Wt: 155 lbs BSA: 1.80 m2 HR: 74 bpm BP: 113 / 66 mmHg Technical Quality: Fair Exam Date: 05/27/2023 9:19 AM Exam Location: [facility] Room: ICU5 Patient Status: Inpatient Admit Date: 05/25/2023 Staff Ordering Physician: Chris Khan MD Landscape Artist: Shanika Borrero RDCS Attending Provider: Rudy James MD Exam Type: CA echo dop color flow w con Study Info Indications - STEMI HYPOXIA PROBNP Complete two-dimensional, color flow and Doppler transthoracic echocardiogram is performed with contrast to opacify the left ventricle and to improve the deliniation of the left ventricle endocardial borders. Contrast/Agitated Saline Contrast/Ag. Saline: Definity Amount: 2.00 ml Administered By: Shanika Borrero [facility] Existing IV Access: Yes IV Access Condition: patent with no signs of infiltration Summary 1. Normal LV size and wall thickness; ejection fraction about 60%; apical segments akinetic. Normal diastolic function. Normal RV size and systolic function. Normal mitral valve structure, no significant MR. Normal aortic valve, no significant stenosis, mild aortic regurgitation. Mild pulmonary hypertension, RVSP 43 mmHg. Left Ventricle Left ventricular chamber dimension is normal. Left ventricular systolic function is normal, estimated at 60-65%. There is no increased left ventricular wall thickness. The left ventricular diastolic function is normal. Right Ventricle Right ventricular chamber dimension is normal. Right ventricular systolic function is normal. Left Atria Left atrial chamber dimension is normal. Right Atria Right atrial chamber dimension is normal. Aortic Valve The aortic valve is normal. There is no aortic valve stenosis. There is mild aortic valve regurgitation. Pulmonic Valve The pulmonic valve is not well visualized. Mitral Valve The mitral valve has normal leaflets. Tricuspid Valve Mild pulmonary hypertension, estimated pulmonary arterial systolic pressure is 43 mmHg. Pericardium/Pleural The pericardium appears normal. There is trivial pericardial effusion. Inferior Vena Cava Normal inferior vena cava with >50% collapse upon inspiration consistent with normal right atrial pressure, 10 mmHg. Aorta The aortic root size at the sinus of Valsalva is not well visualized. Left Ventricular Outflow Tract Name Value Normal LVOT 2D LVOT Diameter 1.98 cm LVOT Doppler LVOT Peak Gradient 6 mmHg LVOT Mean Gradient 3 mmHg LVOT VTI 20.54 cm LVOT VTI/AV VTI Ratio 0.90 LVOT Stroke Volume 63.21 ml LVOT CO 15.82 l/min LVOT CI 8.80 L/min/m2 Pulmonic Valve Name Value Normal RVOT Doppler
[2023-05-27 04:26] LABS: Hematocrit 34.6 % (37.0-47.0); Hemoglobin 11.5 g/dL (12.0-15.0); Mean Corpuscular HGB Conc 33.2 g/dl (32-36); Mean Corpuscular Hemoglobin 32.1 pg (26-34); Mean Corpuscular Volume 96.6 fl (80-100); Mean Platelet Volume 9.6 fl (7.4-10.4); Platelet Count Result 303 k/mm3 (150-375); Red Blood Count 3.58 M/mm3 (4.2-5.4); Red Cell Distribution Width 13.2 % (11.5-14.5); White Blood Count 14.2 K/mm3 (4.5-10.0)
[2023-05-27 04:42] LABS: Alanine Aminotransferase 34 U/L (6-35); Albumin Level 3.4 g/dL (3.5-5.1); Alkaline Phosphatase 79 U/L (38-126); Anion Gap 1 mmol/L (8-16); Aspartate Amino Transferase 82 U/L (14-36); Bilirubin,Total 0.5 mg/dL (0.2-1.3); Blood Urea Nitrogen 28 mg/dL (7-17); Calcium 9.3 mg/dL (8.4-10.2); Carbon Dioxide 33 mmol/L (22-30); Chloride 101 mmol/L (98-107); Estimated CRCL calculation 33 ml/min; Estimated Glomerular Filt Rate 36; Glucose 100 mg/dL (65-110); Magnesium 2.2 mg/dL (1.6-2.3); Potassium 4.3 mmol/L (3.4-5.0); Sodium 135 mmol/L (137-145)
[2023-05-27] MEDS: VENLAFAXINE HCL XR 75 MG CAP.ER.24H 150 MG PO (08:22)
[2023-05-27] MEDS: carvediloL 6.25 MG TABLET PO ×2 (08:22→19:40)
[2023-05-27] MEDS: ASPIRIN 81 MG CHEWABLE TABLET PO (08:23)
[2023-05-27] MEDS: LOSARTAN POTASSIUM 100 MG TABLET PO (08:23)
[2023-05-27] MEDS: ROSUVASTATIN 10 MG TABLET 20 MG PO (08:23)
[2023-05-27] MEDS: TICAGRELOR 90 MG TABLET PO ×2 (08:23→19:41)
[2023-05-27] MEDS: DOCUSATE SODIUM 100 MG CAPSULE PO ×2 (08:23→19:40)
[2023-05-27] MEDS: PERFLUTREN LIPID MICROSPHERES 1.5 ML VIAL DILUTED TO 10 ML TOTAL VOLUME IV PUSH (09:50)
--- NOTE | 2023-05-27 10:18 | WPDINTPN ---
Progress Note: A&P Assessment and Plan (1) ST elevation (STEMI) myocardial infarction: Code(s): I21.3 - ST elevation (STEMI) myocardial infarction of unspecified site Status: Acute Assessment and Plan: Status post PCI of LAD with drug-eluting stent. Currently chest pain-free Continue aspirin beta-mikayla losartan Brilinta and statin (2) Hematoma following procedure: Status: Acute Assessment and Plan: Patient developed hematoma after removal arterial sheath. Patient had a transient drop in blood pressure. Director Home was called overnight and patient was given 1 L fluid bolus and femstop was applied Groin appears soft at this time although has bruising which is getting darker in a. Hemoglobin was checked following the bleed and has been gradually trending down but does not appear to have marked drop. Patient asymptomatic and hemodynamically stable Continue to monitor for now (3) Tobacco abuse: Code(s): Z72.0 - Tobacco use Status: Acute Assessment and Plan: Patient was counseled and encouraged to quit smoking. She states she will make an attempt (4) Elevated serum creatinine: Code(s): R79.89 - Other specified abnormal findings of blood chemistry Status: Acute Assessment and Plan: Patient presented with creatinine 1.5. She has had longstanding hypertension. Baseline creatinine unknown but I suspect patient may have chronic kidney disease. CT of chest showed mild atrophy of the kidneys Ultrasound is pending Doppler of kidneys was negative Check CK mildly elevated at 872 urine electrolytes reviewed UA negative Creatinine checked this morning was 1.5 Monitor urine output electrolytes and creatinine Will give cautious amount of IV fluids as [place] [address] (5) Hypertension: Code(s): I10 - Essential (primary) hypertension Status: Acute Assessment and Plan: Continue losartan and Coreg P.r.n. labetalol (6) Congestive heart failure: Code(s): I50.9 - Heart failure, unspecified Status: Acute Assessment and Plan: Patient had elevated [place] cardiac [place] [address] [place] scan did not show any pulmonary edema Will hold diuretics at this time since patient also had drop in her hemoglobin and had elevated creatinine Echo is pending Plan DVT prophylaxis -SCDs Nutrition -heart healthy diet Incentive spirometry Up in chair Transfer out of ICU today Subjective Date/time seen: 05/27/23 Overnight events reviewed. Afebrile She states she feels well this morning and denies any specific complaints. She states she slept well. Patient denies fever, chest pain, shortness of breath, cough, nausea vomiting, abdominal pain,, diarrhea, headache or constipation. She had episode of pain last night and was given nitroglycerin but states the pain was below her chest and was different than on presentation chest pain and was more sharp in quality. No pain in the groin or abdomen today. All other systems were reviewed and were negative Review of Systems Review of Systems: All systems reviewed & are unremarkable except as noted in HPI and below (HPI) Exam Narrative: General: Pt is alert awake and in NAD Lungs/Chest: Trachea central Clear BS B/L, No crackles or wheezing. Cardiac: RRR. Normal S1 S2. No murmurs Circulation: Pedal pulses are intact and symmetrical. Right groin shows large area of bruising and hematoma which is getting darker in color. The abdomen does not feel firm or tender. No bruising on the flanks no tenderness Abdomen: Normal bowel sounds.. Soft. NT. ND. Extremities: No clubbing, cyanosis or edema. Warm : Estrada in place Neurologic: Follows commands. Moves all 4 extremities PERRL Skin: No Rash Objective Data Vital Signs Vital Signs: Vital Signs - 24 hr 05/26/23 12:00 05/26/23 12:00 05/26/23 12:00 Temperature 36.5 C Pulse Rate 75 62 Respiratory R
--- NOTE | 2023-05-27 10:28 | PM.PNCARD ---
Progress Note: A&P Assessment and Plan (1) ST elevation (STEMI) myocardial infarction: Code(s): I21.3 - ST elevation (STEMI) myocardial infarction of unspecified site Status: Acute Assessment and Plan: Continue aspirin, Brilinta, rosuvastatin, carvedilol and losartan. (2) Cardiomyopathy: Code(s): I42.9 - Cardiomyopathy, unspecified Status: Acute Assessment and Plan: EF is normal (3) Hypertension: Code(s): I10 - Essential (primary) hypertension Status: Acute Assessment and Plan: BP control (4) Tobacco abuse: Code(s): Z72.0 - Tobacco use Status: Acute (5) Hematoma following procedure: Status: Acute Assessment and Plan: Will order a right groin arterial Doppler to ensure there is no hematoma or pseudoaneurysm since hemoglobin is still drifting down. If hemoglobin stabilizes, anticipate discharge tomorrow Plan Okay to transfer IMU Subjective Date/time seen: 05/27/23 10:28 Interval history: Follow-up visit in this 57-year-old lady with: Coronary artery disease presenting last night with acute ST-elevation PR of the anterior wall. Underwent emergency PCI with stenting of totally occluded proximal LAD with good angiographic result. She is resting comfortably in the ICU this morning. Following sheath removal she did have a significant hematoma develop in the right groin. Date of service 05/27/2023: Hemoglobin continues to drift down but groin is stable. No chest pain or shortness of breath. Review of Systems Review of Systems: All systems reviewed & are unremarkable except as noted in HPI and below Constitutional: Constitutional: Denies body ache(s) ENT: Reports Normal hearing present Cardiovascular: Cardiovascular: Denies chest pain Respiratory: Respiratory: Denies dyspnea Gastrointestinal: Gastrointestinal: Denies abdominal pain Genitourinary: Genitourinary: Denies hematuria Musculoskeletal: Musculoskeletal: Denies back pain Integumentary/Breasts: Skin/Breast: Denies dry skin Hematologic/Lymphatic: Hematologic/Lymphatic: Denies easy bleeding Exam Const: General: comfortable, no acute distress and uncomfortable Other: well-developed well-nourished overweight white female in moderate distress with chest pain HENMT: Mouth: Yes moist mucous membranes Eyes: Sclera: sclerae normal Neck: Neck: supple and no JVD Other: carotid impulses are unremarkable bilateral Resp: Effort & Inspection: normal respiratory effort Auscultation: clear to auscultation bilaterally Cardio: Rate: regular rate Rhythm: regular rhythm Other: PMI nondisplaced first second heart sounds rub S4 is evident GI: Auscultation: normal bowel sounds Skin: General skin exam: normal color Neuro: Other: Alert and oriented x3 Extrem: Other: Significant ecchymosis at the right groin puncture site in the right thigh. Right groin is soft however Objective Data Vital Signs Vital Signs: Vital Signs - 24 hr 05/26/23 12:00 05/26/23 12:00 05/26/23 12:00 Temperature 36.5 C Pulse Rate 75 62 Respiratory Rate 14 Blood Pressure 156/76 H Pulse Oximetry 97 100 Oxygen Delivery Room Air 05/26/23 14:00 05/26/23 14:00 05/26/23 16:00 Temperature Pulse Rate 84 84 62 Respiratory Rate 18 Blood Pressure 145/103 H Pulse Oximetry 96 Oxygen Delivery 05/26/23 16:00 05/26/23 16:00 05/26/23 18:00 Temperature 36.6 C Pulse Rate 72 87 Respiratory Rate 17 Blood Pressure 126/76 Pulse Oximetry 97 98 Oxygen Delivery Room Air 05/26/23 18:00 05/26/23 20:14 05/26/23 20:00 Temperature Pulse Rate 79 86 81 Respiratory Rate 17 Blood Pressure 132/71 Pulse Oximetry 99 Oxygen Delivery 05/26/23 20:00 05/26/23 20:00 05/26/23 22:00 Temperature 36.6 C Pulse Rate 81 88 Respiratory Rate 9 L Blood Pressure 112/88 Pulse Oximetry 97 Oxygen Delivery Room Air
[2023-05-27] MEDS: LACTATED RINGERS 1,000 ML 125 ML IV CONT (12:15)
--- NOTE | 2023-05-27 12:48 | PM.IMPN ---
Progress Note: A&P Assessment and Plan (1) ST elevation (STEMI) myocardial infarction: Code(s): I21.3 - ST elevation (STEMI) myocardial infarction of unspecified site Status: Acute Assessment and Plan: Status post PCI of LAD with drug-eluting stent. Currently chest pain-free Continue aspirin beta-mikayla losartan Brilinta and statin (2) Hematoma following procedure: Status: Acute Assessment and Plan: Monitor (3) Tobacco abuse: Code(s): Z72.0 - Tobacco use Status: Acute Assessment and Plan: Patient was counseled and encouraged to quit smoking. She states she will make an attempt (4) Elevated serum creatinine: Code(s): R79.89 - Other specified abnormal findings of blood chemistry Status: Acute Assessment and Plan: Monitor (5) Hypertension: Code(s): I10 - Essential (primary) hypertension Status: Acute Assessment and Plan: Continue losartan and Coreg P.r.n. labetalol (6) Congestive heart failure: Code(s): I50.9 - Heart failure, unspecified Status: Acute Assessment and Plan: Continue cardiac regimen Subjective Date/time seen: 05/27/23 12:48 Interval history: No complaints Exam Narrative: General: Pt is alert awake and in NAD Lungs/Chest: Trachea central Clear BS B/L, No crackles or wheezing. Cardiac: RRR. Normal S1 S2. No murmurs Circulation: Pedal pulses are intact and symmetrical. Right groin shows large area of bruising and hematoma which is getting darker in color. The abdomen does not feel firm or tender. No bruising on the flanks no tenderness Abdomen: Normal bowel sounds.. Soft. NT. ND. Extremities: No clubbing, cyanosis or edema. Warm : Estrada in place Neurologic: Follows commands. Moves all 4 extremities PERRL Skin: No Rash Objective Data Vital Signs Vital Signs: Vital Signs - 24 hr 05/26/23 14:00 05/26/23 14:00 05/26/23 16:00 Temperature Pulse Rate 84 84 62 Respiratory Rate 18 Blood Pressure 145/103 H Pulse Oximetry 96 Oxygen Delivery 05/26/23 16:00 05/26/23 16:00 05/26/23 18:00 Temperature 97.9 F Pulse Rate 72 87 Respiratory Rate 17 Blood Pressure 126/76 Pulse Oximetry 97 98 Oxygen Delivery Room Air 05/26/23 18:00 05/26/23 20:14 05/26/23 20:00 Temperature Pulse Rate 79 86 81 Respiratory Rate 17 Blood Pressure 132/71 Pulse Oximetry 99 Oxygen Delivery 05/26/23 20:00 05/26/23 20:00 05/26/23 22:00 Temperature 98 F Pulse Rate 81 88 Respiratory Rate 9 L Blood Pressure 112/88 Pulse Oximetry 97 Oxygen Delivery Room Air 05/26/23 22:00 05/26/23 21:00 05/26/23 21:35 Temperature Pulse Rate 77 79 80 Respiratory Rate 12 11 L 16 Blood Pressure 95/62 L 133/77 Pulse Oximetry 95 98 Oxygen Delivery 05/26/23 21:45 05/26/23 21:49 05/26/23 23:00 Temperature Pulse Rate 81 95 88 Respiratory Rate 15 Blood Pressure 145/119 H 106/65 Pulse Oximetry 95 Oxygen Delivery 05/27/23 00:00 05/27/23 02:00 05/27/23 02:00 Temperature Pulse Rate 68 75 Respiratory Rate 14 Blood Pressure 108/65 Pulse Oximetry Oxygen Delivery Room Air 05/27/23 04:00 05/27/23 04:00 05/27/23 04:00 Temperature 97.8 F Pulse Rate 82 82 Respiratory Rate 16 Blood Pressure 107/57 L Pulse Oximetry 97 Oxygen Delivery Room Air 05/27/23 00:00 05/27/23 00:00 05/27/23 06:00 Temperature 98.0 F Pulse Rate 77 77 74 Respiratory Rate 16 Blood Pressure 143/76 H Pulse Oximetry 99 Oxygen Delivery 05/27/23 06:00 05/27/23 08:00 05/27/23 08:00 Temperature 97.1 F L Pulse Rate 74 81 81 Respiratory Rate 15 10 L Blood Pressure 113/66 136/86 Pulse Oximetry 99 95 Oxygen Delivery 05/27/23 08:00 05/27/23 10:00 05/27/23 10:00 Temperature Pulse Rate 81 97 97 Respiratory Rate 10 L 18 Blood Pressure 117/79 Pulse Oximetry 95 97 Oxygen Delivery Room Air 05/27/23 1
--- NOTE | 2023-05-27 13:21 | PCPTNOTE ---
On 05/27/23, the student, PASCUAL Ledesma, provided care and completed [facility] documentation on this patient. I have reviewed the student's documentation and agree with the findings.
[2023-05-27] MEDS: ALPRAZolam (*CRX) 0.25 MG TABLET PO (19:41)
[2023-05-28] VITALS: BP 113/64; PULSE 75; RESP 18; TEMP 36.6; O2SAT 94
[2023-05-28 04:00] VITALS: BP 140/71; PULSE 85; RESP 16; TEMP 36.6; O2SAT 98
[2023-05-28 04:32] LABS: Hematocrit 33.5 % (37.0-47.0); Mean Corpuscular HGB Conc 32.8 g/dl (32-36); Mean Corpuscular Hemoglobin 31.6 pg (26-34); Mean Corpuscular Volume 96.3 fl (80-100); Mean Platelet Volume 10.1 fl (7.4-10.4); Platelet Count Result 292 k/mm3 (150-375); Red Blood Count 3.48 M/mm3 (4.2-5.4); Red Cell Distribution Width 13.1 % (11.5-14.5); White Blood Count 12.8 K/mm3 (4.5-10.0)
[2023-05-28 04:51] LABS: Alanine Aminotransferase 31 U/L (6-35); Albumin Level 3.6 g/dL (3.5-5.1); Alkaline Phosphatase 74 U/L (38-126); Anion Gap 2 mmol/L (8-16); Aspartate Amino Transferase 55 U/L (14-36); Bilirubin,Total 0.4 mg/dL (0.2-1.3); Blood Urea Nitrogen 28 mg/dL (7-17); Calcium 9.4 mg/dL (8.4-10.2); Carbon Dioxide 31 mmol/L (22-30); Chloride 103 mmol/L (98-107); Estimated CRCL calculation 46 ml/min; Estimated Glomerular Filt Rate 46; Glucose 93 mg/dL (65-110); Magnesium 2.2 mg/dL (1.6-2.3); Potassium 3.6 mmol/L (3.4-5.0); Sodium 136 mmol/L (137-145)
[2023-05-28 06:00] VITALS: PULSE 71
[2023-05-28 08:00] VITALS: BP 135/78; PULSE 83; PULSE 87; RESP 20; TEMP 36.6; O2SAT 100
[2023-05-28] MEDS: carvediloL 6.25 MG TABLET PO (08:09)
[2023-05-28] MEDS: ASPIRIN 81 MG CHEWABLE TABLET PO (08:09)
[2023-05-28] MEDS: ROSUVASTATIN 10 MG TABLET 20 MG PO (08:09)
[2023-05-28] MEDS: LOSARTAN POTASSIUM 100 MG TABLET PO (08:09)
[2023-05-28] MEDS: DOCUSATE SODIUM 100 MG CAPSULE PO (08:09)
[2023-05-28] MEDS: TICAGRELOR 90 MG TABLET PO (08:09)
[2023-05-28] MEDS: VENLAFAXINE HCL XR 75 MG CAP.ER.24H 150 MG PO (08:09)
[2023-05-28] MEDS: ALPRAZolam (*CRX) 0.25 MG TABLET PO (09:24)
--- NOTE | 2023-05-28 09:47 | P.CDI_ITS ---
acute systolic CDI Query Clarification Request CHF noted in the assessment and plan. Elevated BNP on 05/26/23 lab work. Please specify type and acuity of heart failure if known. * Acute * Chronic * Acute on Chronic * Unknown * Systolic * Diastolic * Combined Systolic and Diastolic * Unknown
--- NOTE | 2023-05-28 09:47 | WPDCDIQUERY2 ---
CDI Query Clarification Request CHF noted in the assessment and plan. Elevated BNP on 05/26/23 lab work. Please specify type and acuity of heart failure if known. Acute Chronic Acute on Chronic Unknown Systolic Diastolic Combined Systolic and Diastolic Unknown
[2023-05-28 10:00] VITALS: PULSE 90
--- NOTE | 2023-05-28 11:50 | PM.DS ---
DS: Admitting Diagnosis Discharge Date May 28, 2023 Admitting Diagnosis STEMI DS: Discharge Diagnosis Discharge Diagnosis (1) ST elevation (STEMI) myocardial infarction: Code(s): I21.3 - ST elevation (STEMI) myocardial infarction of unspecified site Status: Acute Assessment and Plan: Status post PCI of LAD with drug-eluting stent. Currently chest pain-free Continue aspirin beta-mikayla losartan Brilinta and statin (2) Hematoma following procedure: Status: Acute Assessment and Plan: Monitor (3) Tobacco abuse: Code(s): Z72.0 - Tobacco use Status: Acute Assessment and Plan: Patient was counseled and encouraged to quit smoking. She states she will make an attempt (4) Elevated serum creatinine: Code(s): R79.89 - Other specified abnormal findings of blood chemistry Status: Acute Assessment and Plan: Monitor (5) Hypertension: Code(s): I10 - Essential (primary) hypertension Status: Acute Assessment and Plan: Continue losartan and Coreg P.r.n. labetalol (6) Congestive heart failure: Code(s): I50.9 - Heart failure, unspecified Status: Acute Assessment and Plan: Continue cardiac regimen DS: Summary Hospital Course Hospital Course: Patient was admitted for STEMI, had LAD stent placed. Will be discharged on aspirin Brilinta Crestor and carvedilol and losartan. Blood pressure looks good vitals are stable chest pain-free. Patient can follow up Cardiology. Time Spent with Patient Time attestation: Total time spent providing and/or coordinating discharge services: Exam Narrative: General: Pt is alert awake and in NAD Lungs/Chest: Trachea central Clear BS B/L, No crackles or wheezing. Cardiac: RRR. Normal S1 S2. No murmurs Circulation: Pedal pulses are intact and symmetrical. Right groin shows large area of bruising and hematoma which is getting darker in color. The abdomen does not feel firm or tender. No bruising on the flanks no tenderness Abdomen: Normal bowel sounds.. Soft. NT. ND. Extremities: No clubbing, cyanosis or edema. Warm : Estrada in place Neurologic: Follows commands. Moves all 4 extremities PERRL Skin: No Rash DS: Data Data Completed and Pending Labs on day of discharge: Labs from last 24 hours 05/28/23 04:18 WBC 12.8 H RBC 3.48 L Hgb 11.0 L Hct 33.5 L MCV 96.3 MCH 31.6 MCHC 32.8 RDW 13.1 Plt Count 292 MPV 10.1 Sodium 136 L Potassium 3.6 Chloride 103 Carbon Dioxide 31 H Anion Gap 2 L BUN 28 H Creatinine 1.20 H Estim Creat Clear Calc 46 Estimated GFR 46 L Glucose 93 Calcium 9.4 Magnesium 2.2 Total Bilirubin 0.4 AST 55 H ALT 31 Alkaline Phosphatase 74 Total Protein 7.0 Albumin 3.6 Discharge Plan Discharge Attending physician on discharge: Tereso Cabrera Consulting providers: Tereso Walter Discharging Clinician: Tereso Cabrera Patient Disposition: Home, Self-Care Activity: as tolerated Diet: as tolerated Patient Instructions: Antibiotic Form, Ticagrelor (By mouth), Heart Attack (DC), Acute Coronary Syndrome (DC), Cardiac Rehabilitation (GEN), Left Heart Catheterization (GEN) Stand Alone Forms: General Discharge Information Follow-up/Referrals: Kishor,Matthias Calero MD [Primary Care Provider] - 2 Weeks (Follow up with Dr. Iverson on 06/11/23 at 10 am. Please arrive 10 minutes early. Make sure to bring your insurance card and ID.) Discharge Medications: New aspirin [Children's Aspirin] 81 mg Tablet,Chewable 81 mg PO DAILY@0800 30 Days Qty: 30 0RF carvedilol [Coreg] 6.25 mg Tablet 6.25 mg PO Q12HR 30 Days Qty: 60 0RF losartan 100 mg Tablet 100 mg PO DAILY 30 Days Qty: 30 0RF rosuvastatin [Crestor] 10 mg Tablet 20 mg PO DAILY 30 Days Qty: 60 0RF Brilinta 90 mg Tablet 90 mg PO Q12HR Qty: 60 0RF Continued venlafaxine 150 mg capsule,extended release 24hr 1
[2023-05-28 12:00] VITALS: PULSE 83; O2SAT 100
== END 2023-05-28 12:35 | disposition home or self-care (01) | DRG 247 ==
LOC: ANHED 17:47 → ANHICU 18:56
PROVIDERS: Internal Medicine; Admitting Provider Specialist; Emergency Provider Emergency Medicine; PCP Family Medicine; Visit Provider Chiropractor
PROC: 4A023N7 Measurement of Cardiac Sampling and Pressure, Left Heart, Percutaneous Approach (ICD-10-PCS; CPT 93452; principal; 2023-05-25 18:00)
PROC: 027034Z Dilation of Coronary Artery, One Artery with Drug-eluting Intraluminal Device, Percutaneous Approach (ICD-10-PCS; 2023-05-25 18:00)
DX: I21.09 ST elevation (STEMI) myocardial infarction involving other coronary artery of anterior wall (principal); I97.630 Postprocedural hematoma of a circulatory system organ or structure following a cardiac catheterization; I42.9 Cardiomyopathy, unspecified; I11.0 Hypertensive heart disease with heart failure; I50.20 Unspecified systolic (congestive) heart failure; I25.10 Atherosclerotic heart disease of native coronary artery without angina pectoris; I10 Essential (primary) hypertension; R79.89 Other specified abnormal findings of blood chemistry; F17.210 Nicotine dependence, cigarettes, uncomplicated
CPT/HCPCS: 36415; 71275; 76775; 80053; 80061; 81001; 82550; 82570; 82948; 83735; 83880; 84300; 84443; 84484; 85025; 85027; 85610; 85730; 86850; 86900; 86901; 93005; 93458; 93926; 93976; 97161; 99215; 99291; A9270; C1725; C1769; C1874; C1887; C1894; C8929; C9606; G0463; J0461; J1644; J2405; J7030; J7040; J7120; Q9957; Q9967

== ENCOUNTER 2023-07-29 08:30 | Outpatient (RCR) | payer OTHER, SELFPAY ==
[2023-07-05 08:25] VITALS: PULSE 96
== END 2023-08-15 09:22 | disposition home or self-care (01) ==
LOC: ANHCPREHAB 08:30
PROVIDERS: PCP Family Medicine; Visit Provider Specialist
DX: Z95.5 Presence of coronary angioplasty implant and graft (principal)
CPT/HCPCS: 93798

== ENCOUNTER 2024-07-20 10:27 | Inpatient (IN) | payer OTHER, SELFPAY ==
[2024-07-20] VITALS (31 sets, daily range): BP systolic 62–136; BP diastolic 26–65; PULSE 64–93; RESP 11–22; TEMP 36.4–36.8; O2SAT 95–100; BMI 34.5; BMI 33.3
--- NOTE | ~2024-07-20 | US_ITS ---
EXAMINATION: US pelvic complete DATE: 07/23/2024 15:27 INDICATION: Left adnexal mass TECHNIQUE: Multiple transabdominal sonographic images of the pelvis were obtained. COMPARISON: CT dated 07/30/2024 FINDINGS: The uterus measures 5.9 x 2.2 x 3.4 cm. The endometrial complex is not clearly visualized on the tra nsabdominal imaging. The right ovary measures 1.4 x 1.2 x 1.3 cm. The left ovary measures 6.6 x 5.0 x 4.7 cm. 5.5 x 4.4 x 4.3 cm simple appearing anechoic left ovarian cyst. Vascular flow identified on color Doppler at both ovaries. There is no free fluid in the pelvis. IMPRESSION: 5.5 cm simple appearing left ovarian cyst which accounts for the lesion of concern on prior CT. Other garcia unremarkable pelvic ultrasound. Reviewed, dictated and finalized at location B. IMPRESSION: 5.5 cm simple appearing left ovarian cyst which accounts for the lesion of conc berna on prior CT. Otherwise unremarkable pelvic ultrasound.
--- NOTE | ~2024-07-20 | CT_ITS ---
EXAMINATION: CT abdomen pelvis wo con DATE: 07/20/2024 14:23 INDICATION: Gastrointestinal bleed. TECHNIQUE: Computed tomography (CT) of the abdomen and pelvis was performed without intravenous contr ast. Automated exposure control and iterative reconstruction technique were employed. The dose-length product was 729.92 mGy-cm. COMPARISON: None FINDINGS: Mild dependent atelectasis in bilateral lower lobes. Heart size is normal. Decreased attenuation the blood pool versus myocardium consistent with anemia. No pericardial or pleural effusion. Cholecystect jas clips the gallbladder fossa. Liver, spleen, pancreas, bilateral adrenal glands and kidneys are no rmal. Bowels including the appendix are normal. 7.2 x 4.7 x 5.3 cm soft tissue density left adnexal m ass which abuts the uterus. No free intraperitoneal gas or fluid. No pathologically enlarged abdomina l or pelvic lymphadenopathy. Mild scattered degenerative skeletal changes. IMPRESSION: 1. 7.2 x 4.7 x 5.3 cm soft tissue density left adnexal mass which abuts uterus with differential incl uding ovarian neoplasm, complex ovarian cystic lesion including hemorrhagic cyst or endometrioma or p otentially a pedunculated uterine fibroid. Consider further evaluation with either pelvic ultrasound or pre and postcontrast pelvic MRI. Reviewed, dictated and finalized at location B. IMPRESSION: 1. 7.2 x 4.7 x 5.3 cm soft tissue density left adnexal mass which abuts uterus with differential including ovarian neoplasm, complex ovarian cystic lesion inc luding hemorrhagic cyst or endometrioma or potentially a pedunculated uterine f ibroid. Consider further evaluation with either pelvic ultrasound or pre and po stcontrast pelvic MRI.
--- NOTE | ~2024-07-20 | XR_ITS ---
XR foot RT min 3V Ordering provider: Harry Dallas MD History: . pain/ bruising medial foot and toes . Comparison: None. FINDINGS: BONES: Fracture is seen in the proximal metaphysis of the middle metatarsal bone. No other fractures seen. JOINT SPACES: Normal. No tarsal coalition. SOFT TISSUES: Normal. IMPRESSION: Fracture at the base of the middle metatarsal bone. Reviewed, dictated and finalized at location A.
[2024-07-20 10:36] LABS: Glucose Point of Care 98 mg/dl (65-105)
--- NOTE | 2024-07-20 10:36 | ECG_ITS ---
Test Date: 2024-07-20 10:35:06 Measurements Intervals [place] Rate: 69 P: -54 DE: 133 QRS: 30 QRSD: 113 T: 32 QT: 421 QTc: 453 Interpretive Statements SINUS RHYTHM LOW QRS VOLTAGE IN PRECORDIAL LEADS INTRAVENTRICULAR CONDUCTION DELAY NONSPECIFIC ST & T-WAVE ABNORMALITY- DIFFUSE LEADS BASELINE ARTIFACT- I, II, III, AVR, AVL, AVF, V1-V6 BORDERLINE ECG No previous ECG available for comparison Electronically Signed On 07-20-2024 12:08:17 CDT by Billy Pat D.O.
[2024-07-20] MEDS: SODIUM CHLORIDE 0.9% IV 1,000 ML 999 ML IV CONT ×2 (10:40→10:53)
[2024-07-20 10:48] LABS: Basophils Percent Auto 0.1 % (0.2-1.2); Eosinophils Absolute Auto 0.1 K/mm3 (0-0.3); Eosinophils Percent Auto 1.2 % (0-4.4); Immature Granulocyte Absolute 0.18 K/mm3 (0.00-0.031); Immature Granulocyte Percent A 1.6 % (0-0.5); Lymphocytes Absolute Auto 1.72 K/mm3 (0.9-3.2); Lymphocytes Percent Auto 15.2 % (18.3-44.2); Mean Corpuscular HGB Conc 27.9 g/dl (32-36); Mean Corpuscular Hemoglobin 22.2 pg (26-34); Mean Corpuscular Volume 79.7 fl (80-100); Mean Platelet Volume 9.2 fl (7.4-10.4); Monocytes Absolute Auto 1.1 K/mm3 (0.1-0.6); Monocytes Percent Auto 9.7 % (2.6-8.5); Neutrophils Absolute Auto 8.2 K/mm3 (1.3-6.7); Neutrophils Percent Auto 72.2 % (45.5-73.1); Nucleated Red Blood Cells Perc 0.6 % (0.0-0.2); Platelet Count Result 285 k/mm3 (150-375); Red Blood Count 1.53 M/mm3 (4.2-5.4); Red Cell Distribution Width 20.8 % (11.5-14.5); White Blood Count 11.3 K/mm3 (4.5-10.0)
[2024-07-20 10:59] LABS: Hematocrit 12.2 % (37.0-47.0); Hemoglobin 3.4 g/dL (12.0-15.0)
[2024-07-20 11:00] LABS: Anisocytosis 2+; Hypochromasia 2+; Microcytosis 2+ (NORMAL); Platelet Estimate Adequate (Adequate); Schistocytes None Seen
--- NOTE | 2024-07-20 11:36 | ED.GENADULT ---
HPI - General Adult General Chief complaint: Syncope Stated complaint: syncopal Time Seen by Provider: 07/20/24 10:37 History of Present Illness HPI narrative: Patient is a 58-year-old female who presents emergency department with chief complaint of syncopal episode. The patient did not eat breakfast this morning and felt a little shaky and did not feel so well the patient went to her primary care doctor's office for an appointment and while she was getting up from a wheelchair to the scale felt very lightheaded and reports that she briefly passed out patient was found to be hypotensive and reports that she just feels weak and run down. Related Data Home Medications Medication Instructions Recorded Confirmed alprazolam 0.25 mg tablet 0.25 mg PO PRN PRN Anxiety 10/03/19 07/20/24 venlafaxine 150 mg 150 mg PO DAILY 10/03/19 07/20/24 capsule,extended release 24 hr cetirizine 10 mg tablet (Zyrtec) 10 mg PO DAILY PRN Allergic 05/12/24 07/20/24 Symptoms Allergies Allergy/AdvReac Type Severity Reaction Status Date / Time No Known Allergies Allergy Verified 07/20/24 09:33 Review of Systems Review of Systems: A 10 system review of systems was completed on the patient and is negative except for what is stated in the HPI. Nursing and ancillary documentation was reviewed. [facility] Past Medical History Medical History Anxiety Depression History of bruising easily Hypertension Surgical History Surgical History History of cholecystectomy (~2014) Family History Family History Mother Family history of kidney disease Family history of congestive heart failure Other Family history of allergic disorder Family history of cardiovascular disease Family history of malignant neoplasm Social History Social History Smoking packs per day: 0.5 Smoking cigarettes per day: 10.0 Years smoked: 40 Smoking pack-years: 20.00 Smoking status: Current every day smoker Tobacco type: cigarettes Alcohol intake: current Do You Feel Safe in your Home?: Yes Lack of Transportation: No Lack of Food: Never True Current Housing: I Do Not Have Housing Concerned About Future Housing: No Difficulty Paying Gas/Electric Bills: No Difficulty Paying for Meds: No Currently Unemployed: No Education: Bachelor's Degree Difficulty w/ Childcare or Family Care: No Spiritual care concerns: No Exam Narrative: GENERAL: Well-appearing, well-nourished, and in no acute distress. Appears to be pale HEAD: Normocephalic, atraumatic. EYES: PERRLA and EOMI. ENT: Nares clear, no rhinorrhea or epistaxis. Mucous membranes moist. NECK: Supple. CHEST: Clear to auscultation. No respiratory distress. HEART: Regular rate and rhythm. No murmur heard. Normal peripheral pulses. ABDOMEN: Soft, nontender, nondistended, normal active bowel sounds. : Guaiac-positive stool EXTREMITIES: Normal range of motion there is bruising present to the dorsum of the foot at the base of the phalanx is of the right foot. No edema. SKIN: Warm, dry, no rash. NEURO: No focal deficits. Alert and oriented x3. PSYCH: Normal mood and affect. Course Vital Signs Vital signs: Vital Signs Temperature 36.4 C 07/20/24 10:28 Pulse Rate 71 07/20/24 10:28 Respiratory Rate 18 07/20/24 10:28 Blood Pressure 85/33 L 07/20/24 10:28 Pulse Oximetry 100 07/20/24 10:28 Oxygen Delivery Room Air 07/20/24 10:28 Temperature 36.5 C 07/20/24 14:35 Pulse Rate 73 07/20/24 14:44 Respiratory Rate 18 07/20/24 14:44 Blood Pressure 133/57 L 07/20/24 14:44 Pulse Oximetry 100 07/20/24 14:44 Oxygen Delivery Room Air 07/20/24 10:28 Medical Decision Making MDM Narrative Me
[2024-07-20 11:37] LABS: Alanine Aminotransferase 16 U/L (6-35); Alkaline Phosphatase 81 U/L (38-126); Anion Gap 11 mmol/L (4-12); Aspartate Amino Transferase 20 U/L (14-36); Bilirubin,Total 0.3 mg/dL (0.2-1.3); Blood Urea Nitrogen 28 mg/dL (7-17); Calcium 8.6 mg/dL (8.4-10.2); Carbon Dioxide 16 mmol/L (22-30); Chloride 111 mmol/L (98-107); Estimated CRCL calculation 23 ml/min; Estimated Glomerular Filt Rate 21; Glucose 95 mg/dL (65-110); Potassium 3.7 mmol/L (3.4-5.0); Sodium 138 mmol/L (137-145)
[2024-07-20 11:37] LABS: Lactate Dehydrogenase 126 U/L (120-246); Lactic Acid Reflex 1.8 mmol/L (0.7-2.0); Magnesium 1.7 mg/dL (1.6-2.3)
[2024-07-20] MEDS: PANTOPRAZOLE SODIUM IV 40 MG VIAL IV PUSH (11:41)
[2024-07-20 11:47] LABS: NT Pro B Type Natriuretic Pept 758 pg/mL (19.9-100); Troponin I < 0.012 ng/mL (0.000-0.034)
[2024-07-20 12:04] LABS: Add Urine Microscopic? YES; Appearance Urine Clear (Clear); Bacteria Urine None Seen /hpf; Bilirubin Urine Negative (Negative); Blood Urine Negative (Negative); Color Urine Yellow (Yellow); Glucose Urine UA Negative (Negative); Ketones Urine Negative (Negative); Leukocyte Esterase Ur Negative LEU/UL (Negative); Nitrate Urine Negative (Negative); Protein Urine 1+ mg/dL (Negative); RBC Urine 0-2 /hpf (0-2); Specific Grav Ur 1.005 (1.001-1.035); Squamous Epithelial Cell Urine None Seen /hpf (Few); Urobilinogen Urine 0.2 mg/dL (<2.0); WBC Urine 0-5 /hpf (0-3); pH Urine 5.5 (5.0-9.0)
[2024-07-20 12:23] LABS: Procalcitonin 0.1 ng/mL
[2024-07-20 12:27] LABS: Iron 16 ug/dL (37-170)
[2024-07-20 12:32] LABS: INR 1.1; Prothrombin Time 14.9 Seconds (11.1-14.7)
[2024-07-20 12:33] LABS: Partial Thromboplastin Time 26.9 Seconds (22.3-36.8)
[2024-07-20 12:34] LABS: Hematocrit 13.6 % (37.0-47.0); Hemoglobin 3.6 g/dL (12.0-15.0)
[2024-07-20 12:42] LABS: Percent Iron Saturation 5 % (20-50)
[2024-07-20 13:04] LABS: Ferritin 6.89 ng/mL (11.1-264)
[2024-07-20] MEDS: SODIUM CHLORIDE 0.9% IV 250 ML 30 ML IV CONT ×2 (13:21→21:02)
[2024-07-20] MEDS: TUBING, BLOOD PLUM PUMP TUBING 1 EACH XX ×2 (13:22→21:03)
[2024-07-20] MEDS: TUBING, BLOOD SET 1 EACH XX (13:22)
[2024-07-20 13:35] LABS: Folic Acid 12.4 ng/mL (2.76->20)
--- NOTE | 2024-07-20 14:38 | ECG_ITS ---
Test Date: 2024-07-20 14:43:01 Measurements Intervals [place] Rate: 75 P: 41 [place]: 206 QRS: 19 QRSD: 102 T: 53 QT: 380 QTc: 424 Interpretive Statements SINUS RHYTHM LOW QRS VOLTAGE IN PRECORDIAL LEADS BORDERLINE ST-T WAVE ABNORMALITY- LAT/HIGH LAT LEADS BASELINE ARTIFACT- I, II, III, AVR, AVL, AVF, V1-V6 BORDERLINE ECG Compared to ECG 07/20/2024 10:35:06 NO SIGNIFICANT CHANGE Electronically Signed On 07-20-2024 14:52:39 CDT by Billy Pat D.O.
[2024-07-20 14:54] LABS: Hematocrit 22.1 % (37.0-47.0)
[2024-07-20 14:56] LABS: Hemoglobin 6.5 g/dL (12.0-15.0)
[2024-07-20 15:29] LABS: Troponin I < 0.012 ng/mL (0.000-0.034)
--- NOTE | 2024-07-20 16:07 | ADMGEN ---
This patient, Margie Marroquin, was admitted to IMU Room 207-01. Patient/family oriented to hospital policies and general routines including ID bracelet, bed and alarms, visiting hours, pain management, procedures, bathroom and other care routines, personal items, smoking policy, room service/diet, and visiting hours. Information on how to activate the Rapid Response Team has been discussed. Patient/Family are encouraged to report perceived risks to care and to ask questions if they do not understand what they are told or what they should do.
--- NOTE | 2024-07-20 16:55 | PM.IMHP ---
H&P: HPI History of Present Illness Date/Time: 07/20/24 16:30 Chief Complaint: Near-syncope. Narrative: This is a very pleasant 58-year-old female with coronary artery disease with history of acute anterior wall myocardial infarction due to 100% acute thrombotic occlusion of proximal LAD status post PCI with drug-eluting stent in May 2023, ischemic cardiomyopathy with improved ejection fraction, chronic kidney disease stage 3, hypertension, and hyperlipidemia who presented to the emergency department via EMS from the office Dr. Bell for evaluation after a near syncopal episode. The patient and her provide the following history. She has been having issues with fluid in her ears and she had a routine appointment today. She reports feeling ?a little shaky? when she got up this morning however after she got out of the car and walked to the office she began to feel very weak and off balance. When she went to get on the scale she got extremely weak and crumpled to the ground. It was reported that she had a syncopal episode however the patient tells me that she did not completely lose consciousness. With further questioning she admits to being more fatigued and short of breath recently and has noted that she gets out of breath with minimal activity. She denies change in medications, weight loss, cold and flu symptoms, fever, focal weakness, paresthesias, chest pain, pleuritic pain, palpitations, edema, calf pain, epigastric and abdominal pain, nausea, vomiting, diarrhea, melena, hematochezia, dysuria, In the ED: Blood pressure was 85/33 on arrival but has been as low as 62/36. Labs are significant for WBC count of 11.3, hemoglobin 3.4, hematocrit 12.2, MCV 79.7, BUN 20, creatinine 2.40, troponin less than 0.012, total protein 6.0, albumin 3.0. CT of the abdomen and pelvis showed a 7.2 x 4.7 x 5.3 cm soft tissue density left adnexal mass which abuts the uterus. Right foot x-ray (pain following a fall 2 weeks ago) showed a fracture at the base of the middle metatarsal bone. She was given 2 units of packed red blood cells with improvement her blood pressure and she is being admitted in this setting for further treatment and GI consultation as her stool was guaiac positive. Review of Systems Review of Systems: 12 systems were reviewed and are negative except for as per HPI. [facility] Past Medical History Medical History (Updated 07/20/24 @ 20:24 by Honey Medina PA-C) Anterior wall myocardial infarction (05/2023) Status post PCI and stent to the LAD. Anxiety Chronic kidney disease, stage 3 Coronary artery disease Depression Hyperlipidemia Hypertension Ischemic cardiomyopathy With improved ejection fraction. Surgical History Surgical History (Updated 07/20/24 @ 20:22 by Honey Medina PA-C) History of cardiac catheterization (05/2023) History of cholecystectomy (2014) History of coronary artery stent placement (05/2023) Family History Family History Mother Family history of kidney disease Family history of congestive heart failure Other Family history of allergic disorder Family history of cardiovascular disease Family history of malignant neoplasm Social History Social History (Updated 07/20/24 @ 20:22 by Honey Medina PA-C) Social History: Surrogate medical decision maker: Rodrigue Marroquin, spouse. Code status: Full code. Smoking packs per day: 0.5 Smoking cigarettes per day: 10.0 Years smoked: 40 Smoking pack-years: 20.00 Smoking status: Current every day smoker Tobacco type: cigarettes Alcohol intake: never Substance use: never Do You Feel Safe in your Home?: Yes Lack of Transportation: No Lack of Food: Never True Current Housing: I Have Housing Concerned About Future Housing: No Difficulty Paying Gas/Electric Bills: No Difficulty Paying for Meds: No Currently Unemployed: No Education: Bachelor's Degree
[2024-07-20 17:36] LABS: Hematocrit 22.3 % (37.0-47.0)
[2024-07-20 18:00] LABS: Hemoglobin 6.5 g/dL (12.0-15.0)
[2024-07-20] MEDS: polyethylene glycoL 3350 238 GM BOTTLE PO (18:39)
[2024-07-20] MEDS: BISACODYL 5 MG TABLET EC 20 MG PO (18:39)
--- NOTE | 2024-07-20 21:57 | PC.NURSE ---
Issue with scanning pt. armband. Blood administration started at 2104. Verified by RENETTA Avila, Charge.
[2024-07-21] VITALS (23 sets, daily range): BP systolic 113–153; BP diastolic 44–77; PULSE 67–88; RESP 17–22; TEMP 35.9–36.7; O2SAT 93–100
[2024-07-21 00:11] LABS: Hematocrit 26.5 % (37.0-47.0); Hemoglobin 7.9 g/dL (12.0-15.0)
[2024-07-21] MEDS: MAGNESIUM CITRATE 300 ML BTL PO (01:47)
[2024-07-21] MEDS: ONDANSETRON INJ 4 MG/2 ML VIAL IV PUSH ×2 (03:22→07:45)
[2024-07-21 03:29] LABS: Hematocrit 26.3 % (37.0-47.0); Hemoglobin 8.1 g/dL (12.0-15.0)
[2024-07-21 03:30] LABS: Hematocrit 26.5 % (37.0-47.0); Hemoglobin 8.1 g/dL (12.0-15.0); Mean Corpuscular HGB Conc 30.6 g/dl (32-36); Mean Corpuscular Hemoglobin 25.3 pg (26-34); Mean Corpuscular Volume 82.8 fl (80-100); Mean Platelet Volume 9.1 fl (7.4-10.4); Platelet Count Result 299 k/mm3 (150-375); Red Cell Distribution Width 19.9 % (11.5-14.5); White Blood Count 11.3 K/mm3 (4.5-10.0)
[2024-07-21 03:45] LABS: Alanine Aminotransferase 18 U/L (6-35); Albumin Level 3.5 g/dL (3.5-5.1); Alkaline Phosphatase 109 U/L (38-126); Anion Gap 12 mmol/L (4-12); Aspartate Amino Transferase 22 U/L (14-36); Bilirubin,Total 0.5 mg/dL (0.2-1.3); Blood Urea Nitrogen 20 mg/dL (7-17); Calcium 9.5 mg/dL (8.4-10.2); Carbon Dioxide 14 mmol/L (22-30); Chloride 115 mmol/L (98-107); Estimated CRCL calculation 25 ml/min; Estimated Glomerular Filt Rate 23; Glucose 127 mg/dL (65-110); Magnesium 1.9 mg/dL (1.6-2.3); Potassium 3.5 mmol/L (3.4-5.0); Sodium 141 mmol/L (137-145)
--- NOTE | 2024-07-21 07:14 | WPDGICN ---
Assessment and Plan Assessment and plan (1) Profound anemia: Code(s): D64.9 - Anemia, unspecified Status: Acute Assessment and Plan: will proceed today with egd and colonoscopy, no overt gib check for ulcer, avm, etc more recommendations after scope hold brilinta for now (2) Acute on chronic kidney failure: Code(s): N17.9 - Acute kidney failure, unspecified; N18.9 - Chronic kidney disease, unspecified Status: Acute Assessment and Plan: worsening renal failure by primary probably this can explain part of anemia (3) Coronary artery disease: Code(s): I25.10 - Atherosclerotic heart disease of [place] coronary artery without angina pectoris Status: Acute (4) Occult GI bleeding: Code(s): R19.5 - Other fecal abnormalities Status: Acute Assessment and Plan: scopes today (5) Near syncope: Code(s): R55 - Syncope and collapse Status: Acute Assessment and Plan: due to symptomatic anemia GI Consult Note Consult date/time: 07/21/24 07:14 Reason for consult: symptomatic anemia HPI: Margie Marroquin is a 58 year old female with history of coronary artery disease with history of acute anterior wall myocardial infarction due to 100% acute thrombotic occlusion of proximal LAD status post PCI with drug-eluting stent in May 2023 now using brilinta, ischemic cardiomyopathy with improved ejection fraction, chronic kidney disease stage 3, hypertension. She is here after syncopal episode but she did not completely lose consciousness. Lately she has been more fatigued and short of breath on exertion. She denies weight loss, fever, edema. No melena, no overt gib. No h/o GERD. Last colonoscopy about 5 years ago. Labs are significant for WBC count of 11.3, hemoglobin 3.4, hematocrit 12.2, MCV 79.7, BUN 20, creatinine 2.40 (higher than baseline), total protein 6.0, albumin 3.0. CT of the abdomen and pelvis showed a 7.2 x 4.7 x 5.3 cm soft tissue density left adnexal mass which abuts the uterus. She received blood transfusion (denies previous h/o transfusion- last hgb 11.5 on 05/2023) Review of Systems Constitutional: Constitutional: Reports fatigue and Reports weakness Eyes: Eyes: Denies blurry vision ENT: Reports Normal hearing present Cardiovascular: Cardiovascular: Reports lightheadedness Respiratory: Respiratory: Denies cough and Reports dyspnea on exertion Gastrointestinal: Gastrointestinal: Denies nausea Genitourinary: Genitourinary: Denies urinary incontinence Musculoskeletal: Musculoskeletal: Denies neck pain Integumentary/Breasts: Skin/Breast: Denies rash Neurologic: Denies Abnormal speech present Psychiatric: Psychiatric: Denies behavioral changes [facility] Past Medical History Medical History (Updated 07/20/24 @ 20:24 by Honey Medina PA-C) Anterior wall myocardial infarction (05/2023) Status post PCI and stent to the LAD. Anxiety Chronic kidney disease, stage 3 Coronary artery disease Depression Hyperlipidemia Hypertension Ischemic cardiomyopathy With improved ejection fraction. Surgical History Surgical History (Updated 07/20/24 @ 20:22 by Honey Medina PA-C) History of cardiac catheterization (05/2023) History of cholecystectomy (2014) History of coronary artery stent placement (05/2023) Family History Family History Mother Family history of kidney disease Family history of congestive heart failure Other Family history of allergic disorder Family history of cardiovascular disease Family history of malignant neoplasm Social History Social History (Updated 07/20/24 @ 20:22 by Honey Medina PA-C) Social History: Surrogate medical decision maker: Rodrigue Marroquin, spouse. Code status: Full code. Smoking packs per day: 0.5 Smoking cigarettes per day: 10.0 Years smoked: 40 Smoking pack-years: 20.00 Smoking status: Current every
[2024-07-21] MEDS: VENLAFAXINE HCL XR 75 MG CAP.ER.24H 150 MG PO (08:03)
[2024-07-21] MEDS: PANTOPRAZOLE SODIUM IV 40 MG VIAL IV PUSH (08:04)
[2024-07-21 09:39] LABS: Hematocrit 28.7 % (37.0-47.0); Hemoglobin 8.6 g/dL (12.0-15.0)
--- NOTE | 2024-07-21 12:23 | WPDANESEPPF ---
Anes - Initial Pre Proc Eval Procedure: Operation Date: 07/21/24 15:00 Proposed Procedures p Esophagogastroduodenoscopy & Colonoscopy - Mario Townsend MD Date/Time: 07/21/24 12:23 Surgeon: Abad Woodard MD Pre Op Diagnosis: Syncope, Anemia, Quaiac-pos stools Patient Data Age: 58 Gender: F Height: 1.55 m Weight: 81.5 kg Last Vital Signs Temp 36.4 C L 07/21/24 11:31 Pulse 82 07/21/24 11:31 Resp 20 07/21/24 11:31 BP 142/57 H 07/21/24 11:31 Pulse Ox 100 07/21/24 11:31 O2 Del Method Room Air 07/21/24 08:03 FiO2 21 07/21/24 08:03 Allergies Allergy/AdvReac Type Severity Reaction Status Date / Time No Known Allergies Allergy Verified 07/21/24 12:25 Home Medications Medication Instructions Recorded Confirmed Type alprazolam 0.25 mg tablet 0.25 mg PO Q6H 10/03/19 07/20/24 History venlafaxine 150 mg 150 mg PO DAILY 10/03/19 07/20/24 History capsule,extended release 24 hr aspirin 81 mg chewable tablet 81 mg PO DAILY@0800 30 days #30 05/28/23 07/20/24 Rx (Children's Aspirin) tabs carvedilol 6.25 mg tablet (Coreg) 6.25 mg PO Q12HR 30 days #60 tabs 05/28/23 07/20/24 Rx losartan 100 mg tablet 100 mg PO DAILY 30 days #30 tabs 05/28/23 07/20/24 Rx rosuvastatin 10 mg tablet (Crestor) 20 mg PO DAILY 30 days #60 tabs 05/28/23 07/20/24 Rx ticagrelor 90 mg tablet (Brilinta) 90 mg PO Q12HR #60 tabs 05/28/23 07/20/24 Rx cetirizine 10 mg tablet (Zyrtec) 10 mg PO DAILY PRN Allergic 05/12/24 07/20/24 History Symptoms Laboratory Tests 07/20/24 07/20/24 07/20/24 11:11 11:12 12:17 WBC RBC Hgb 3.6 L* g/dL (12.0-15.0) Hct 13.6 L* % (37.0-47.0) MCV MCH MCHC RDW Plt Count MPV Absolute Retic Cancelled Percent Retic Cancelled Immature Retic Fraction Cancelled Retic Hgb Content Cancelled PT INR APTT Sodium Potassium Chloride Carbon Dioxide Anion Gap BUN Creatinine Estim Creat Clear Calc Estimated GFR Glucose Calcium Magnesium Iron 16 L ug/dL (37-170) TIBC 354 ug/dL (261-462) % Saturation 5 L % (20-50) Ferritin 6.89 L ng/mL (11.1-264) Total Bilirubin AST ALT Alkaline Phosphatase Troponin I Total Protein Albumin Vitamin B12 605.0 pg/mL (239-931) Folate 12.4 ng/mL (2.76->20) Procalcitonin 0.1 ng/mL TSH (Reflex) 2.200 uIU/mL (0.465-4.68) Blood Type B Negative Antibody Screen Negative Crossmatch See Detail 07/20/24 07/20/24 07/20/24 12:18 14:43 17:24 WBC RBC Hgb 6.5 L* g/dL 6.5 L* g/dL (12.0-15.0) (12.0-15.0) Hct 22.1 L % 22.3 L % (37.0-47.0) (37.0-47.0) MCV MCH MCHC RDW Plt Count MPV Absolute Retic Percent Retic Immature Retic Fraction Retic Hgb Content PT 14.9 H Seconds (11.1-14.7) INR 1.1 APTT 26.9 Seconds (22.3-36.8) Sodium Potassium Chloride Carbon Dioxide Anion Gap BUN Creatinine Estim Creat Clear Calc Estimated GFR Glucose Calcium Magnesium Iron TIBC % Saturation Ferritin Total Bilirubin AST ALT Alkaline Phosphatase Troponin I < 0.012 ng/mL
[2024-07-21] MEDS: LACTATED RINGERS 1,000 ML 150 ML IV CONT (12:24)
--- NOTE | 2024-07-21 13:17 | SUR.OPER ---
EGD [id number]. Colonoscopy start time 1320.
--- NOTE | 2024-07-21 14:30 | PM.IMPN ---
Progress Note: A&P Assessment and Plan (1) Near syncope: Code(s): R55 - Syncope and collapse Status: Acute (2) Profound anemia: Code(s): D64.9 - Anemia, unspecified Status: Acute (3) Occult GI bleeding: Code(s): R19.5 - Other fecal abnormalities Status: Acute (4) Acute on chronic kidney failure: Code(s): N17.9 - Acute kidney failure, unspecified; N18.9 - Chronic kidney disease, unspecified Status: Acute (5) Coronary artery disease: Code(s): I25.10 - Atherosclerotic heart disease of [place] coronary artery without angina pectoris Status: Acute (6) Ischemic cardiomyopathy: Code(s): I25.5 - Ischemic cardiomyopathy Status: Acute (7) Hypertension: Code(s): I10 - Essential (primary) hypertension Status: Acute Plan The patient presented to the emergency department for evaluation after a near syncopal episode at the doctor's office as detailed in HPI. Labs, imaging, EKG, and all reports were personally reviewed. Blood pressure was as low as the 60s systolic in the ED and this is the likely reason for her near-syncope. She is profoundly anemic and with microcytic indices and Hemoccult-positive stool she likely has occult GI bleeding. She is on aspirin and Brilinta since having a stent placed in May 2023. These medications have been placed on hold and Dr. Walter will likely need to be consulted with following her procedures for recommendations moving forward. Dr. Galan was consulted by the ED physician and the patient will be NPO after midnight for probable upper and lower endoscopy tomorrow. She will be transfused 3 units packed red blood cells to be transfused overnight. Hemoglobin and hematocrit will be monitored closely. At this time she is euvolemic though her volume status will need to be monitored closely while transfusing; she may need a dose of Lasix between or after units of blood. Creatinine is higher than baseline and I suspect that is due to hypoperfusion from hypotension and hypovolemia given the profound anemia. Hold losartan and other nephrotoxic agents. Hold antihypertensives for now as well. Initiate fall precautions. The rest of her home medications will be reviewed and resumed as appropriate. Findings and treatment plan were discussed with the patient. 07/21/2024: Patient underwent upper EGD and colonoscopy. Official report has not been released . The recommendation from GI was to continue hold Brilinta. Patient had a stent placement in May 2023. Patient had a last appointment with in April 2024 and had a discussion about discontinuing Brilinta and continuing aspirin. We will trend the hemoglobin. Patient started on fluids. Monitor trend the creatinine.Patient need outpatient follow-up in regards to the left adnexal mass with slot supervisor. Subjective Date/time seen: 07/21/24 14:30 Interval history: Patient underwent upper EGD and colonoscopy. Official report has not been released . The recommendation from GI was to continue hold Brilinta. Patient had a stent placement in May 2023. Patient had a last appointment with and had a discussion about discontinuing Brilinta and continuing aspirin. We will trend the hemoglobin. Patient need outpatient follow-up in regards to the left adnexal mass with slot supervisor. Patient started on fluids. Monitor trend the creatinine. Review of Systems Review of Systems: 12 systems were reviewed and are negative except for as per HPI. Exam Narrative: General: Mildly ill-appearing female sitting up in bed. Weight: 80 kg. BMI: 33.3. HEENT: PERRL, EOMI. Sclera anicteric. Pale conjunctiva. Tacky mucous membranes. Neck: Supple. Respiratory: Lungs are clear to auscultation bilaterally. Cardiovascular: Regular rate and rhythm with S1-S2. Gastrointestinal: Abdomen is soft, nontender, and nondistended with positive bowel sounds. Skin: Warm and dry. Generalized pallor. Ex
[2024-07-21 15:25] LABS: HPYLORIRESULT Negative (Negative)
[2024-07-21] MEDS: SODIUM CHLORIDE 0.9% IV 1,000 ML 100 ML IV CONT (16:13)
[2024-07-21] MEDS: ACETAMINOPHEN 325 MG TABLET 650 MG PO (16:18)
--- NOTE | 2024-07-21 17:41 | PDONCCN ---
HPI - Date of Consult Date/Time: 07/21/24 17:41 Requesting Physician: Abad Woodard MD Primary Care Provider: UNKNOWN,DOCTOR - Consult Narrative Reason for consult: Iron deficiency anemia and left adnexal mass Narrative: Margie Marroquin is a 58 year old female with history of coronary artery disease status post [place] and stent placement in May 2023 along with history of c-myc cardiomyopathy and chronic kidney disease came into the ER after being evaluated by Dr. Bell for near syncopal episode. Patient was seen by ENT for fluid in the ear. She has been complaining of tiredness and fatigue for last several days duration. Patient was having some shortness of breath and dyspnea on exertion. She was complaining of intermittent blood from the stool. CT scan of abdomen and pelvis showed 7.2 x 4.7 x 5.3 cm mass in the left adnexa. She received 2 units of packed red blood cell with clinical improvement. Hemoccult stool was positive. GI was consulted. EGD done on July 21 showed reflux esophagitis and gastritis. Colonoscopy showed colon polyps. Labs showed iron level of 16 with saturation of 5% and ferritin of 6.8. Brilinta was placed on hold that she was taking since the stent placement in May 2023. Patient denies any previous history of malignancy. She denies any history of gastric bypass surgery. She denies being a vegetarian. Denies any recent weight loss. Review of Systems - Review of Systems All systems reviewed & are unremarkable except as noted in HPI and bel - Neurologic Reports hearing normal, Reports weakness, Denies abnormal speech, Denies behavioral changes [facility] Medical History: Medical History (Last Updated 07/20/24 @ 20:24 by Honey Medina PA-C) Anterior wall myocardial infarction Onset Date: 05/2023 Status post PCI and stent to the LAD. Anxiety Chronic kidney disease, stage 3 Coronary artery disease Depression Hyperlipidemia Hypertension Ischemic cardiomyopathy With improved ejection fraction. Surgical History: Surgical History (Last Updated 07/20/24 @ 20:22 by Honey Medina PA-C) History of cardiac catheterization Onset Date: 05/2023 History of cholecystectomy Onset Date: 2014 History of coronary artery stent placement Onset Date: 05/2023 Family History: Family History (Last Reviewed 07/20/24 @ 20:22 by Honey Medina PA-C) Mother Family history of kidney disease Family history of congestive heart failure Other Family history of allergic disorder Family history of cardiovascular disease Family history of malignant neoplasm - Social History Social History: Social History (Last Updated 07/20/24 @ 20:22 by Honey Medina PA-C) Alcohol Use: Alcohol intake: never Substance Use: Substance use: never Others: Spiritual care concerns: No Smoking Status: Smoking status: Current every day smoker Tobacco type: cigarettes Smoking Pack-years: Smoking packs per day: 0.5 Smoking cigarettes per day: 10.0 Years smoked: 40 Smoking pack-years: 20.00 Social Determinants of Health: Do You Feel Safe in your Home?: Yes Has the Lack of Transportation Kept You From Medical Appointments or From Getting Medications?: No Within the Past 12 Months, Were You Worried Whether Your Food Would Run Out Before You Got Money to Buy More?: Never True What is Your Housing Situation Today?: I Have Housing Are You Worried That in the Next 2 Months, You May Not Have Your Own Housing to Live In?: No Do You Have Trouble Paying Your Heating Or Electricity Bill?: No Do You Have Trouble Paying For Medicines?: No Are You Currently Unemployed and Looking for Work?: No Highest Level of Education Completed: Bachelor's Degree Do You Have Trouble With Childcare or the Care of a Family Member?: No Exam - Vital Signs Vital Signs - 24 hr 07/20/24 18:00 07/20/24 20:00 07/20/24 20:00 T
[2024-07-21] MEDS: IRON SUCROSE COMPLEX 400 MG, IRON SUCROSE COMPLEX 100 MG in SODIUM CHLORIDE 0.9% IV 250 ML 78.57 MG IVPB (18:45)
[2024-07-21] MEDS: PANTOPRAZOLE 40 MG TABLET PO (19:56)
[2024-07-21] MEDS: ALPRAZolam (*CRX) 0.25 MG TABLET PO (23:52)
[2024-07-22] VITALS (18 sets, daily range): BP systolic 123–145; BP diastolic 53–66; PULSE 77–103; RESP 14–18; TEMP 36.4–37.1; O2SAT 97–100
[2024-07-22 04:42] LABS: Hematocrit 23.6 % (37.0-47.0); Hemoglobin 7.2 g/dL (12.0-15.0); Mean Corpuscular HGB Conc 30.5 g/dl (32-36); Mean Corpuscular Hemoglobin 25.4 pg (26-34); Mean Corpuscular Volume 83.1 fl (80-100); Mean Platelet Volume 9.3 fl (7.4-10.4); Platelet Count Result 251 k/mm3 (150-375); Red Blood Count 2.84 M/mm3 (4.2-5.4); Red Cell Distribution Width 20.5 % (11.5-14.5); White Blood Count 12.4 K/mm3 (4.5-10.0)
[2024-07-22 05:01] LABS: Alanine Aminotransferase 14 U/L (6-35); Alkaline Phosphatase 93 U/L (38-126); Anion Gap 10 mmol/L (4-12); Aspartate Amino Transferase 16 U/L (14-36); Bilirubin,Total 0.5 mg/dL (0.2-1.3); Blood Urea Nitrogen 17 mg/dL (7-17); Carbon Dioxide 18 mmol/L (22-30); Chloride 111 mmol/L (98-107); Estimated CRCL calculation 25 ml/min; Estimated Glomerular Filt Rate 23; Glucose 105 mg/dL (65-110); Potassium 3.3 mmol/L (3.4-5.0); Sodium 139 mmol/L (137-145)
[2024-07-22] MEDS: SODIUM CHLORIDE 0.9% IV 1,000 ML 100 ML IV CONT ×2 (05:30→14:48)
[2024-07-22] MEDS: PANTOPRAZOLE 40 MG TABLET PO ×2 (08:39→20:49)
[2024-07-22] MEDS: VENLAFAXINE HCL XR 75 MG CAP.ER.24H 150 MG PO (08:39)
[2024-07-22] MEDS: POTASSIUM CHLORIDE 20 MEQ ER TABLET 40 MEQ PO (11:09)
[2024-07-22 13:06] LABS: Hematocrit 21.6 % (37.0-47.0)
[2024-07-22 13:08] LABS: Hemoglobin 6.6 g/dL (12.0-15.0)
[2024-07-22] MEDS: ALPRAZolam (*CRX) 0.25 MG TABLET PO (14:46)
[2024-07-22] MEDS: SODIUM CHLORIDE 0.9% IV 250 ML 30 ML IV CONT (14:47)
--- NOTE | 2024-07-22 14:53 | WPDGIPROGNO ---
Progress Note: A&P Assessment and Plan (1) Profound anemia: Code(s): D64.9 - Anemia, unspecified Status: Acute Assessment and Plan: evaluated by hem-onc had small gastric ulcers but no signs of bleeding anemia could be multifactorial from renal disease, blood thinner, egd finding but also noted adnexal lesion- will need to see calciner operator helper will follow as needed (2) Gastritis: Code(s): K29.70 - Gastritis, unspecified, without bleeding Status: Acute Assessment and Plan: continue ppi daily (3) Near syncope: Code(s): R55 - Syncope and collapse Status: Acute (4) Acute on chronic kidney failure: Code(s): N17.9 - Acute kidney failure, unspecified; N18.9 - Chronic kidney disease, unspecified Status: Acute Assessment and Plan: monitor (5) Ischemic cardiomyopathy: Code(s): I25.5 - Ischemic cardiomyopathy Status: Acute (6) Adnexal cyst: Code(s): N94.9 - Unspecified condition associated with female genital organs and menstrual cycle Status: Acute Assessment and Plan: will need follow-up with social welfare clerk (7) Adenomatous colon polyp: Code(s): D12.6 - Benign neoplasm of colon, unspecified Status: Acute Assessment and Plan: colonoscopy in 1 year Subjective Date/time seen: 07/22/24 14:53 Interval history: egd with ulcerative gastritis but no signs of bleeding hgb still low Review of Systems Review of Systems: All systems reviewed & are unremarkable except as noted in HPI and below Exam Const: General: comfortable and no acute distress HENMT: Face/Nose/Sinus: Normal nares present Eyes: General: appearance normal, both eyes and all related structures Neck: Neck: supple Resp: Auscultation: clear to auscultation bilaterally Cardio: Rate: regular rate Rhythm: regular rhythm GI: Inspection: non-distended GI Palp: Yes Soft to palpation, No Tenderness to palpation present (GI) and No Guarding due to palpation present (GI) Auscultation: normal bowel sounds Skin: Other: pallor Neuro: Speech: normal speech Motor exam (neuro): 5/5 motor strength present throughout Extrem: General: normal to inspection Psych: Mental Status: mental status grossly normal Objective Data Vital Signs Vital Signs: Vital Signs - 24 hr 07/21/24 16:39 07/21/24 16:00 07/21/24 18:00 Temperature 97.7 F Pulse Rate 79 76 79 Respiratory Rate 18 Blood Pressure 151/74 H Pulse Oximetry 95 Oxygen Delivery 07/21/24 16:00 07/21/24 20:00 07/21/24 20:00 Temperature 98.0 F Pulse Rate 82 74 Respiratory Rate 18 Blood Pressure 117/44 L Pulse Oximetry 95 100 Oxygen Delivery Room Air 07/21/24 20:00 07/21/24 22:00 07/21/24 23:52 Temperature 97.4 F L Pulse Rate 78 84 Respiratory Rate 18 Blood Pressure 135/57 L Pulse Oximetry 93 Oxygen Delivery Room Air 07/22/24 00:00 07/22/24 00:00 07/22/24 02:00 Temperature Pulse Rate 81 86 Respiratory Rate Blood Pressure Pulse Oximetry Oxygen Delivery Room Air 07/22/24 04:00 07/22/24 04:00 07/22/24 04:00 Temperature 97.6 F Pulse Rate 87 88 Respiratory Rate 16 Blood Pressure 135/61 Pulse Oximetry 98 Oxygen Delivery Room Air 07/22/24 06:00 07/22/24 07:57 07/22/24 08:00 Temperature 97.6 F Pulse Rate 86 92 86 Respiratory Rate 18 Blood Pressure 145/62 H Pulse Oximetry 100 Oxygen Delivery 07/22/24 08:00 07/22/24 10:00 07/22/24 12:00 Temperature 97.6 F Pulse Rate 92 84 80 Respiratory Rate 18 18 Blood Pressure 132/66 Pulse Oximetry 100 100 Oxygen Delivery Room Air 07/22/24 12:00 07/22/24 12:00 07/22/24 14:00 Temperature Pulse Rate 78 78 103 H Respiratory Rate 18 Blood Pressure Pulse Oximetry 100 Oxygen Delivery Room Air 07/22/24 14:41 Temperature 98.8 F Pulse Rate 85 Respiratory Rate 14 Blood Pressure 123/53 L Pulse Oximetry 99 Oxygen Delivery
--- NOTE | 2024-07-22 14:57 | PC.NURSE ---
Patient reports no vaginal bleeding. No signs of bleeding noted in bedside commode post void. CCT Jenny reports BMs looked slightly bloody. Patient reports having had two loose BMs today.
--- NOTE | 2024-07-22 16:33 | PM.IMPN ---
Progress Note: A&P Assessment and Plan (1) Near syncope: Code(s): R55 - Syncope and collapse Status: Acute (2) Profound anemia: Code(s): D64.9 - Anemia, unspecified Status: Acute (3) Occult GI bleeding: Code(s): R19.5 - Other fecal abnormalities Status: Acute (4) Acute on chronic kidney failure: Code(s): N17.9 - Acute kidney failure, unspecified; N18.9 - Chronic kidney disease, unspecified Status: Acute (5) Coronary artery disease: Code(s): I25.10 - Atherosclerotic heart disease of [place] coronary artery without angina pectoris Status: Acute (6) Ischemic cardiomyopathy: Code(s): I25.5 - Ischemic cardiomyopathy Status: Acute (7) Hypertension: Code(s): I10 - Essential (primary) hypertension Status: Acute Plan The patient presented to the emergency department for evaluation after a near syncopal episode at the doctor's office as detailed in HPI. Labs, imaging, EKG, and all reports were personally reviewed. Blood pressure was as low as the 60s systolic in the ED and this is the likely reason for her near-syncope. She is profoundly anemic and with microcytic indices and Hemoccult-positive stool she likely has occult GI bleeding. She is on aspirin and Brilinta since having a stent placed in May 2023. These medications have been placed on hold and Dr. Walter will likely need to be consulted with following her procedures for recommendations moving forward. Dr. Galan was consulted by the ED physician and the patient will be NPO after midnight for probable upper and lower endoscopy tomorrow. She will be transfused 3 units packed red blood cells to be transfused overnight. Hemoglobin and hematocrit will be monitored closely. At this time she is euvolemic though her volume status will need to be monitored closely while transfusing; she may need a dose of Lasix between or after units of blood. Creatinine is higher than baseline and I suspect that is due to hypoperfusion from hypotension and hypovolemia given the profound anemia. Hold losartan and other nephrotoxic agents. Hold antihypertensives for now as well. Initiate fall precautions. The rest of her home medications will be reviewed and resumed as appropriate. Findings and treatment plan were discussed with the patient. 07/21/2024: Patient underwent upper EGD and colonoscopy. Official report has not been released . The recommendation from GI was to continue hold Brilinta. Patient had a stent placement in May 2023. Patient had a last appointment with in April 2024 and had a discussion about discontinuing Brilinta and continuing aspirin. We will trend the hemoglobin. Patient started on fluids. Monitor trend the creatinine.Patient need outpatient follow-up in regards to the left adnexal mass with carbide operator. 07/22/2024: Patient morning hemoglobin was 7.2 so we repeated the hemoglobin around 1:00 p.m. which shows to 6.6. Patient received 1 unit of packed red blood cell. We repeated the H&H and pending. Patient reports of dark colored stool but denies any vaginal bleeding. Patient EGD shows moderate ulcerative gastritis was seen in the antrum but there is no evidence of mucosal bleeding. Also there is evidence of esophagitis but there was no bleeding. Patient underwent colonoscopy except for finding the polyps reports says there is nothing to explain about anemia Subjective Date/time seen: 07/22/24 16:33 Interval history: Today patient was evaluated at the bedside patient denies any palpitation chest pain or diaphoresis or shortness of breath. Patient morning hemoglobin was 7.2 so we repeated the hemoglobin around 1:00 p.m. which shows to 6.6. Patient received 1 unit of packed red blood cell. We repeated the H&H and pending. Patient reports of dark colored stool but denies any vaginal bleeding. Patient EGD shows moderate ulcerative gastritis was seen in the antrum but there is no evidence of
[2024-07-22 19:14] LABS: Hematocrit 25.6 % (37.0-47.0); Hemoglobin 8.1 g/dL (12.0-15.0)
[2024-07-23] VITALS (17 sets, daily range): BP systolic 121–154; BP diastolic 56–78; PULSE 77–107; RESP 16–20; TEMP 36.2–36.8; O2SAT 97–100
[2024-07-23 05:10] LABS: Hematocrit 23.6 % (37.0-47.0); Mean Corpuscular HGB Conc 29.7 g/dl (32-36); Mean Corpuscular Hemoglobin 25.5 pg (26-34); Mean Corpuscular Volume 86.1 fl (80-100); Mean Platelet Volume 9.7 fl (7.4-10.4); Platelet Count Result 232 k/mm3 (150-375); Red Blood Count 2.74 M/mm3 (4.2-5.4); Red Cell Distribution Width 20.2 % (11.5-14.5); White Blood Count 11.1 K/mm3 (4.5-10.0)
[2024-07-23 05:26] LABS: Alanine Aminotransferase 13 U/L (6-35); Albumin Level 2.6 g/dL (3.5-5.1); Alkaline Phosphatase 80 U/L (38-126); Anion Gap 10 mmol/L (4-12); Aspartate Amino Transferase 19 U/L (14-36); Bilirubin,Total 0.4 mg/dL (0.2-1.3); Blood Urea Nitrogen 14 mg/dL (7-17); Calcium 8.9 mg/dL (8.4-10.2); Carbon Dioxide 19 mmol/L (22-30); Chloride 112 mmol/L (98-107); Estimated CRCL calculation 24 ml/min; Estimated Glomerular Filt Rate 22; Glucose 83 mg/dL (65-110); Potassium 3.8 mmol/L (3.4-5.0); Sodium 141 mmol/L (137-145)
[2024-07-23 07:48] LABS: Immature Reticulocyte Fraction 32.6 % (3.0-15.9); Reticulocyte Hemoglobin Conten 21.7 pg (28.2-36.6); Reticulocyte Percent 2.22 % (0.7-4.3); Reticulocytes Absolute 0.06 10^6/uL (0.02-0.10)
[2024-07-23 07:53] LABS: Lactate Dehydrogenase 215 U/L (120-246)
[2024-07-23] MEDS: VENLAFAXINE HCL XR 75 MG CAP.ER.24H 150 MG PO (09:17)
[2024-07-23] MEDS: PANTOPRAZOLE 40 MG TABLET PO ×2 (09:17→20:32)
[2024-07-23] MEDS: SODIUM CHLORIDE 0.9% IV 250 ML 30 ML IV CONT (10:21)
[2024-07-23] MEDS: TUBING, BLOOD PLUM PUMP TUBING 1 EACH XX (10:21)
--- NOTE | 2024-07-23 12:01 | PM.IMHP ---
H&P: HPI History of Present Illness Date/Time: 07/23/24 12:01 Chief Complaint: Anemia left adnexal mass Narrative: 68 year female seen the 3-4 years ago her Pap smear was admitted with severe and hemoglobin of 3 5. She has received several doses of blood in has brought it of all those more slowly than expected. She underwent the upper lower GI no reason for blood loss was noted. She is postmenopausal and has not had a period for greater than 10 years and is due for Pap. CT scan showed left adnexal mass CA 125/of 1 is pending with ultrasound this time. She does not complain of any bleeding. [facility] Past Medical History Medical History Adenomatous colon polyp Adnexal cyst Anterior wall myocardial infarction (05/2023) Status post PCI and stent to the LAD. Anxiety Chronic kidney disease, stage 3 Coronary artery disease Depression Gastritis Hyperlipidemia Hypertension Ischemic cardiomyopathy With improved ejection fraction. Surgical History Surgical History History of cardiac catheterization (05/2023) History of cholecystectomy (2014) History of coronary artery stent placement (05/2023) Family History Family History Mother Family history of kidney disease Family history of congestive heart failure Other Family history of allergic disorder Family history of cardiovascular disease Family history of malignant neoplasm Social History Social History Social History: Surrogate medical decision maker: Ordrigue Marroquin, spouse. Code status: Full code. Smoking packs per day: 0.5 Smoking cigarettes per day: 10.0 Years smoked: 40 Smoking pack-years: 20.00 Smoking status: Current every day smoker Tobacco type: cigarettes Alcohol intake: never Substance use: never Do You Feel Safe in your Home?: Yes Lack of Transportation: No Lack of Food: Never True Current Housing: I Have Housing Concerned About Future Housing: No Difficulty Paying Gas/Electric Bills: No Difficulty Paying for Meds: No Currently Unemployed: No Education: Bachelor's Degree Difficulty w/ Childcare or Family Care: No Spiritual care concerns: No Meds Home Medications and Allergies Home Medications Medication Instructions Recorded Confirmed Type alprazolam 0.25 mg tablet 0.25 mg PO Q6H 10/03/19 07/20/24 History venlafaxine 150 mg 150 mg PO DAILY 10/03/19 07/20/24 History capsule,extended release 24 hr aspirin 81 mg chewable tablet 81 mg PO DAILY@0800 30 days #30 05/28/23 07/20/24 Rx ([facility] Aspirin) tabs carvedilol 6.25 mg tablet (Coreg) 6.25 mg PO Q12HR 30 days #60 tabs 05/28/23 07/20/24 Rx losartan 100 mg tablet 100 mg PO DAILY 30 days #30 tabs 05/28/23 07/20/24 Rx rosuvastatin 10 mg tablet (Crestor) 20 mg PO DAILY 30 days #60 tabs 05/28/23 07/20/24 Rx ticagrelor 90 mg tablet (Brilinta) 90 mg PO Q12HR #60 tabs 05/28/23 07/20/24 Rx cetirizine 10 mg tablet (Zyrtec) 10 mg PO DAILY PRN Allergic 05/12/24 07/20/24 History Symptoms Allergies Allergy/AdvReac Type Severity Reaction Status Date / Time No Known Allergies Allergy Verified 07/21/24 12:25 Vital Signs Vital Signs - 24 hr 07/22/24 14:00 07/22/24 14:41 07/22/24 15:00 Temperature 98.8 F 98.7 F Pulse Rate 103 H 85 84 Respiratory Rate 14 16 Blood Pressure 123/53 L 140/61 Pulse Oximetry 99 97 Oxygen Delivery Fraction of Inspired Oxygen 07/22/24 16:00 07/22/24 16:00 07/22/24 16:00 Temperature 98.5 F Pulse Rate 81 86 86 Respiratory Rate 14 14 Blood Pressure 139/60 Pulse Oximetry 100 100 Oxygen Delivery Room Air Fraction of Inspired Oxygen 07/22/24 16:00 07/22/24 18:00 07/22/24 19:57 Temperature 98 F 98.1 F Pulse Rate 85 84 83 Respiratory Rate 16 16 Blood Pressure 138
[2024-07-23 13:07] LABS: Hematocrit 27.3 % (37.0-47.0); Hemoglobin 8.7 g/dL (12.0-15.0)
[2024-07-23] MEDS: ALPRAZolam (*CRX) 0.25 MG TABLET PO (14:08)
--- NOTE | 2024-07-23 15:20 | PM.IMPN ---
Progress Note: A&P Assessment and Plan (1) Near syncope: Code(s): R55 - Syncope and collapse Status: Acute (2) Profound anemia: Code(s): D64.9 - Anemia, unspecified Status: Acute (3) Occult GI bleeding: Code(s): R19.5 - Other fecal abnormalities Status: Acute (4) Acute on chronic kidney failure: Code(s): N17.9 - Acute kidney failure, unspecified; N18.9 - Chronic kidney disease, unspecified Status: Acute (5) Coronary artery disease: Code(s): I25.10 - Atherosclerotic heart disease of [place] coronary artery without angina pectoris Status: Acute (6) Ischemic cardiomyopathy: Code(s): I25.5 - Ischemic cardiomyopathy Status: Acute (7) Hypertension: Code(s): I10 - Essential (primary) hypertension Status: Acute Plan The patient presented to the emergency department for evaluation after a near syncopal episode at the doctor's office as detailed in HPI. Labs, imaging, EKG, and all reports were personally reviewed. Blood pressure was as low as the 60s systolic in the ED and this is the likely reason for her near-syncope. She is profoundly anemic and with microcytic indices and Hemoccult-positive stool she likely has occult GI bleeding. She is on aspirin and Brilinta since having a stent placed in May 2023. These medications have been placed on hold and Dr. Walter will likely need to be consulted with following her procedures for recommendations moving forward. Dr. Galan was consulted by the ED physician and the patient will be NPO after midnight for probable upper and lower endoscopy tomorrow. She will be transfused 3 units packed red blood cells to be transfused overnight. Hemoglobin and hematocrit will be monitored closely. At this time she is euvolemic though her volume status will need to be monitored closely while transfusing; she may need a dose of Lasix between or after units of blood. Creatinine is higher than baseline and I suspect that is due to hypoperfusion from hypotension and hypovolemia given the profound anemia. Hold losartan and other nephrotoxic agents. Hold antihypertensives for now as well. Initiate fall precautions. The rest of her home medications will be reviewed and resumed as appropriate. Findings and treatment plan were discussed with the patient. 07/21/2024: Patient underwent upper EGD and colonoscopy. Official report has not been released . The recommendation from GI was to continue hold Brilinta. Patient had a stent placement in May 2023. Patient had a last appointment with in April 2024 and had a discussion about discontinuing Brilinta and continuing aspirin. We will trend the hemoglobin. Patient started on fluids. Monitor trend the creatinine.Patient need outpatient follow-up in regards to the left adnexal mass with mechanical maintenance. 07/22/2024: Patient morning hemoglobin was 7.2 so we repeated the hemoglobin around 1:00 p.m. which shows to 6.6. Patient received 1 unit of packed red blood cell. We repeated the H&H and pending. Patient reports of dark colored stool but denies any vaginal bleeding. Patient EGD shows moderate ulcerative gastritis was seen in the antrum but there is no evidence of mucosal bleeding. Also there is evidence of esophagitis but there was no bleeding. Patient underwent colonoscopy except for finding the polyps reports says there is nothing to explain about anemia 07/23/2024 :fusion showed 8.1. Today morning the patient hemoglobin again dropped to 7. Patient received 1 unit of packed RBC and repeat hemoglobin is 8.7. In the setting of coronary artery disease with a stent placement a year ago, ongoing bleeding we would like to keep the hemoglobin target about 8. Discussed the case with Dr. Galan who reports the patient cannot bleed from the ulcers to this extent. Today we consulted Dean Of Admissions to evaluate left adnexal mass. Also we ordered haptoglobin, reticulocyte count, LDH to rule out any hemolysi
[2024-07-23 18:16] LABS: Hematocrit 27.9 % (37.0-47.0); Hemoglobin 8.8 g/dL (12.0-15.0)
[2024-07-23 23:42] LABS: Hematocrit 28.2 % (37.0-47.0)
[2024-07-24] VITALS (7 sets, daily range): BP systolic 133–167; BP diastolic 49–70; PULSE 73–87; RESP 16; TEMP 36.1–36.6; O2SAT 98–100
[2024-07-24 05:30] LABS: Hematocrit 29.2 % (37.0-47.0); Hemoglobin 8.9 g/dL (12.0-15.0); Mean Corpuscular HGB Conc 30.5 g/dl (32-36); Mean Corpuscular Hemoglobin 25.9 pg (26-34); Mean Corpuscular Volume 85.1 fl (80-100); Mean Platelet Volume 9.2 fl (7.4-10.4); Platelet Count Result 216 k/mm3 (150-375); Red Blood Count 3.43 M/mm3 (4.2-5.4); Red Cell Distribution Width 19.6 % (11.5-14.5); White Blood Count 8.8 K/mm3 (4.5-10.0)
[2024-07-24 05:39] LABS: Alanine Aminotransferase 17 U/L (6-35); Albumin Level 3.1 g/dL (3.5-5.1); Alkaline Phosphatase 88 U/L (38-126); Anion Gap 10 mmol/L (4-12); Aspartate Amino Transferase 22 U/L (14-36); Bilirubin,Total 0.5 mg/dL (0.2-1.3); Blood Urea Nitrogen 18 mg/dL (7-17); Calcium 9.2 mg/dL (8.4-10.2); Carbon Dioxide 19 mmol/L (22-30); Chloride 108 mmol/L (98-107); Estimated CRCL calculation 25 ml/min; Estimated Glomerular Filt Rate 23; Glucose 89 mg/dL (65-110); Potassium 3.7 mmol/L (3.4-5.0); Sodium 137 mmol/L (137-145)
[2024-07-24 08:49] LABS: CA-125 8 U/mL (<35)
[2024-07-24] MEDS: PANTOPRAZOLE 40 MG TABLET PO (09:09)
[2024-07-24] MEDS: VENLAFAXINE HCL XR 75 MG CAP.ER.24H 150 MG PO (09:10)
--- NOTE | 2024-07-24 11:31 | PC.NURSE ---
This patient, Margie Marroquin, was transferred to [[id number] ] on 07/24/24 at 1131. Personal belongings sent with patient. Report given to [ Cecilia]. Appropriate documentation sent with patient.
--- NOTE | 2024-07-24 12:00 | PC.NURSE ---
RN spoke with the pt because the pt was visibly upset about being brought up to the floor. Pt refused tele and stated that she was suppose to go home and wanted to talk to the doctor about going home. RN informed the charge of the pts concerns. Pt arrived to the floor stable and it stable. [email or web address].
[2024-07-24] MEDS: ALPRAZolam (*CRX) 0.25 MG TABLET PO (12:34)
--- NOTE | 2024-07-24 12:35 | PC.NURSE ---
This patient, Mragie Marroquin, was received from IMU on 07/24/24 at 1138. Patient/family oriented to unit policies and routines
[2024-07-24 13:08] LABS: Hematocrit 30.2 % (37.0-47.0); Hemoglobin 8.7 g/dL (12.0-15.0)
[2024-07-24 13:09] LABS: Haptoglobin 333 mg/dL (43-212)
--- NOTE | 2024-07-24 16:53 | PM.DS ---
DS: Admitting Diagnosis Discharge Date 07/24/24 Admitting Diagnosis Anemia, Guaiac positive stools, Syncope, Metatarsal fracture DS: Discharge Diagnosis Discharge Diagnosis (1) Adenomatous colon polyp: Code(s): D12.6 - Benign neoplasm of colon, unspecified Status: Acute (2) Adnexal cyst: Code(s): N94.9 - Unspecified condition associated with female genital organs and menstrual cycle Status: Acute (3) Coronary artery disease: Code(s): I25.10 - Atherosclerotic heart disease of [place] coronary artery without angina pectoris Status: Acute (4) Occult GI bleeding: Code(s): R19.5 - Other fecal abnormalities Status: Acute (5) Acute on chronic kidney failure: Code(s): N17.9 - Acute kidney failure, unspecified; N18.9 - Chronic kidney disease, unspecified Status: Acute (6) Near syncope: Code(s): R55 - Syncope and collapse Status: Acute (7) Profound anemia: Code(s): D64.9 - Anemia, unspecified Status: Acute (8) Anemia: Code(s): D64.9 - Anemia, unspecified Status: Acute (9) Guaiac positive stools: Code(s): R19.5 - Other fecal abnormalities Status: Acute (10) Ischemic cardiomyopathy: Code(s): I25.5 - Ischemic cardiomyopathy Status: Acute DS: Summary Hospital Course Hospital Course: This is a very pleasant 58-year-old female with coronary artery disease with history of acute anterior wall myocardial infarction due to 100% acute thrombotic occlusion of proximal LAD status post PCI with drug-eluting stent in May 2023, ischemic cardiomyopathy with improved ejection fraction, chronic kidney disease stage 3, hypertension, and hyperlipidemia who presented to the emergency department via EMS from the office Dr. Bell for evaluation after a near syncopal episode. The patient and her provide the following history. She has been having issues with fluid in her ears and she had a routine appointment today. She reports feeling ?a little shaky? when she got up this morning however after she got out of the car and walked to the office she began to feel very weak and off balance. When she went to get on the scale she got extremely weak and crumpled to the ground. It was reported that she had a syncopal episode however the patient tells me that she did not completely lose consciousness. With further questioning she admits to being more fatigued and short of breath recently and has noted that she gets out of breath with minimal activity. She denies change in medications, weight loss, cold and flu symptoms, fever, focal weakness, paresthesias, chest pain, pleuritic pain, palpitations, edema, calf pain, epigastric and abdominal pain, nausea, vomiting, diarrhea, melena, hematochezia, dysuria, In the ED: Blood pressure was 85/33 on arrival but has been as low as 62/36. Labs are significant for WBC count of 11.3, hemoglobin 3.4, hematocrit 12.2, MCV 79.7, BUN 20, creatinine 2.40, troponin less than 0.012, total protein 6.0, albumin 3.0. CT of the abdomen and pelvis showed a 7.2 x 4.7 x 5.3 cm soft tissue density left adnexal mass which abuts the uterus. Right foot x-ray (pain following a fall 2 weeks ago) showed a fracture at the base of the middle metatarsal bone. She was given 2 units of packed red blood cells with improvement her blood pressure and she is being admitted in this setting for further treatment and GI consultation as her stool was guaiac positive. 07/21/2024: Patient underwent upper EGD and colonoscopy. Official report has not been released . The recommendation from GI was to continue hold Brilinta. Patient had a stent placement in May 2023. Patient had a last appointment with in April 2024 and had a discussion about discontinuing Brilinta and continuing aspirin. We will trend the hemoglobin. Patient started on fluids. Monitor trend the creatinine.Patient need outpatient follow-up in regards to the left
== END 2024-07-24 14:35 | disposition home or self-care (01) | DRG 394 ==
LOC: ANHED 14:58 → ANHIMU 15:36 → ANH3MEDSUR 07-24 11:31
PROVIDERS: Internal Medicine Gastroenterology; Obstetrics & Gynecology; Physician Assistant; Admitting Provider General Practice; Emergency Provider Emergency Medicine; Visit Provider General Practice
PROC: 0DJ08ZZ Inspection of Upper Intestinal Tract, Via Natural or Artificial Opening Endoscopic (ICD-10-PCS; CPT 43235; principal; 2024-07-21 15:00)
DX: D12.2 Benign neoplasm of ascending colon (principal); N17.9 Acute kidney failure, unspecified; D12.0 Benign neoplasm of cecum; D12.3 Benign neoplasm of transverse colon; K29.70 Gastritis, unspecified, without bleeding; R19.09 Other intra-abdominal and pelvic swelling, mass and lump; N94.9 Unspecified condition associated with female genital organs and menstrual cycle; D50.9 Iron deficiency anemia, unspecified; E78.5 Hyperlipidemia, unspecified; F17.210 Nicotine dependence, cigarettes, uncomplicated; F32.A Depression, unspecified; F41.9 Anxiety disorder, unspecified; I25.10 Atherosclerotic heart disease of native coronary artery without angina pectoris; I25.2 Old myocardial infarction; I25.5 Ischemic cardiomyopathy; I12.9 Hypertensive chronic kidney disease with stage 1 through stage 4 chronic kidney disease, or unspecified chronic kidney disease; I95.9 Hypotension, unspecified; K21.00 Gastro-esophageal reflux disease with esophagitis, without bleeding; K29.60 Other gastritis without bleeding; N18.30 Chronic kidney disease, stage 3 unspecified; R55 Syncope and collapse; S92.331D Displaced fracture of third metatarsal bone, right foot, subsequent encounter for fracture with routine healing; W19.XXXD Unspecified fall, subsequent encounter; Z90.49 Acquired absence of other specified parts of digestive tract; Z79.82 Long term (current) use of aspirin; Z95.5 Presence of coronary angioplasty implant and graft
CPT/HCPCS: 36415; 36430; 73630; 74176; 76856; 80053; 81001; 82330; 82607; 82728; 82746; 82948; 83010; 83540; 83550; 83605; 83615; 83735; 83880; 84145; 84443; 84484; 85014; 85018; 85025; 85027; 85046; 85610; 85730; 86304; 86850; 86900; 86901; 86923; 87081; 88305; 88342; 93005; 96361; 96374; 99285; A9270; G0378; J1756; J2405; J2470; J2704; J7030; J7050; J7120; P9016

== ENCOUNTER 2024-09-09 13:58 | Outpatient (CLI) | payer OTHER, SELFPAY ==
[2024-09-09 14:26] LABS: Basophils Percent Auto 0.6 % (0.2-1.2); Eosinophils Absolute Auto 0.2 K/mm3 (0-0.3); Eosinophils Percent Auto 2.6 % (0-4.4); Hematocrit 38.5 % (37.0-47.0); Hemoglobin 11.9 g/dL (12.0-15.0); Immature Granulocyte Absolute 0.03 K/mm3 (0.00-0.031); Immature Granulocyte Percent A 0.4 % (0-0.5); Lymphocytes Absolute Auto 1.87 K/mm3 (0.9-3.2); Lymphocytes Percent Auto 25.8 % (18.3-44.2); Mean Corpuscular HGB Conc 30.9 g/dl (32-36); Mean Corpuscular Hemoglobin 29.3 pg (26-34); Mean Corpuscular Volume 94.8 fl (80-100); Mean Platelet Volume 9.4 fl (7.4-10.4); Monocytes Absolute Auto 0.7 K/mm3 (0.1-0.6); Monocytes Percent Auto 9.8 % (2.6-8.5); Neutrophils Absolute Auto 4.4 K/mm3 (1.3-6.7); Neutrophils Percent Auto 60.8 % (45.5-73.1); Platelet Count Result 287 k/mm3 (150-375); Red Blood Count 4.06 M/mm3 (4.2-5.4); Red Cell Distribution Width 20.2 % (11.5-14.5); White Blood Count 7.2 K/mm3 (4.5-10.0)
[2024-09-09 16:57] LABS: Iron 82 ug/dL (37-170)
[2024-09-09 17:07] LABS: Alanine Aminotransferase 35 U/L (6-35); Albumin Level 4.2 g/dL (3.5-5.1); Alkaline Phosphatase 92 U/L (38-126); Anion Gap 6 mmol/L (4-12); Aspartate Amino Transferase 30 U/L (14-36); Bilirubin,Total 0.3 mg/dL (0.2-1.3); Blood Urea Nitrogen 14 mg/dL (7-17); Calcium 9.9 mg/dL (8.4-10.2); Carbon Dioxide 28 mmol/L (22-30); Chloride 107 mmol/L (98-107); Estimated Glomerular Filt Rate 42; Glucose 88 mg/dL (65-110); Percent Iron Saturation 23 % (20-50); Potassium 4.2 mmol/L (3.4-5.0); Sodium 141 mmol/L (137-145)
== END 2024-09-09 13:59 | disposition home or self-care (01) ==
PROVIDERS: Visit Provider Internal Medicine Hematology & Oncology
DX: D64.9 Anemia, unspecified (principal)
CPT/HCPCS: 36415; 80053; 82607; 82728; 83540; 83550; 85025

== ENCOUNTER 2025-09-23 13:07 | Outpatient (CLI) | payer OTHER, SELFPAY ==
--- NOTE | 2025-09-23 13:21 | ECG_ITS ---
Test Date: 2025-09-23 13:43:40 Measurements Intervals [place] Rate: 71 P: 9 OK: 166 QRS: 21 QRSD: 104 T: 66 QT: 388 QTc: 424 Interpretive Statements SINUS RHYTHM ANTEROSEPTAL MYOCARDIAL INFARCTION [40+ ms Q WAVE IN V1-V4], OF INDETERMINATE AGE No previous ECG available for comparison Electronically Signed On 09-23-2025 13:58:45 WATER SYSTEMS DESIGNER by Brody Amador M.D.
--- OUTSIDE RECORDS SUMMARY | 2025-09-23 13:51 | XMS_ITS | Clinical Summary ---
[facility] Organization [facility] Address [address] [place] [place] [address] Care Team Providers Care Restorative Aide Name Role Phone Unavailable Primary Care Provider Unavailabl e Medications venlafaxine 225 mg Extended Release 24 hour tablet Take 225 mg by mouth daily with breakfast. Active ALPRAZolam (XANAX) 0.25 mg tablet Take 0.25 mg by mouth nightly as needed for Anxiety. Active Active Problems No known active problems Encounters Date Type Department Care Team Description 09/07/2025 External Device Data ST[facility] ABSTRACTION Provider, Abstract from Last 3 Months Family History Medical History Relation Name Comments No Known Problems Brother Colon Cancer Father Heart Disease Mother Hypertension Mother Relation Name Status Comments Brother Alive Father Mother Social History Tobacco Use Types Packs/Day Years Used Date Smoking Tobacco: Every Day Cigarettes 0.5 41.9 Started: 1983 Smokeless Tobacco: Never Alcohol Use Standard Drinks/Week Comments Not Asked 0 (1 standard drink = 0.6 oz pur e alcohol) Ocasionally Comments Unknown Sex and Gender Information Value Date Recorded Sex Assigned at Not on file Legal Sex Female 8:36 AM CDT Gender Identity Not on file Sexual Orientation Not on file Last Filed Vital Signs Vital Sign Reading Time Taken Comments Blood Pressure 131/70 09/09/2024 1:25 PM CDT Pulse 67 09/09/2024 1:25 PM CDT Temperature 36.6 C (97.8 F) 09/09/2024 1:25 PM CDT Respiratory Rate - - Oxygen Saturation 96% 09/09/2024 1:25 PM CDT Inhaled Oxygen Concentration - - Weight 85.9 kg (189 lb 6.4 oz) 09/09/2024 1:25 P M CDT Height - - Body Mass Index - - Plan of Treatment Health Maintenance Due Date Last Done Comments DTAP/TDAP/TD VACCINES (1 - Tdap) 1985 HEPATITIS B VACCINES (1 of 3 - 19+ 3-dose series) 10/11 HPV/Cotest (21-29) 1987 CERVICAL CANCER SCREENING 1996 HPV/Cotest (30-65) 1996 PAP SMEAR 1996 BREAST CANCER SCREENING 2006 COLORECTAL SCREENING 2011 Colorectal Cancer Screening 2011 FIT-DNA Q 3 years 2011 FIT/FOBT Q 1 year 2011 Flex Sig/CT Colonography Q 5 years 2011 ZOSTER VACCINE (1 of 2) 2016 INFLUENZA VACCINE (#1) 2025 [address]
[2025-09-23 14:27] LABS: Hematocrit 42.9 % (37.0-47.0); Hemoglobin 14.3 g/dL (12.0-15.0)
[2025-09-23 14:41] LABS: Anion Gap 7 mmol/L (4-12); Blood Urea Nitrogen 18 mg/dL (7-17); Calcium 9.9 mg/dL (8.4-10.2); Carbon Dioxide 27 mmol/L (22-30); Chloride 105 mmol/L (98-107); Estimated Glomerular Filt Rate 46; Glucose 102 mg/dL (65-110); Potassium 3.6 mmol/L (3.4-5.0); Sodium 139 mmol/L (137-145)
[2025-09-23 14:44] LABS: INR 0.9; Prothrombin Time 11.9 Seconds (11.1-14.7)
[2025-09-23 14:45] LABS: Partial Thromboplastin Time 31.3 Seconds (22.3-36.8)
== END 2025-09-23 13:08 | disposition home or self-care (01) ==
LOC: ANHSURGERY 13:12
PROVIDERS: Anesthesiology; PCP Physician Assistant; Visit Provider Obstetrics & Gynecology
DX: Z01.818 Encounter for other preprocedural examination (principal); N18.9 Chronic kidney disease, unspecified; I12.9 Hypertensive chronic kidney disease with stage 1 through stage 4 chronic kidney disease, or unspecified chronic kidney disease; D63.1 Anemia in chronic kidney disease; N83.202 Unspecified ovarian cyst, left side; I25.2 Old myocardial infarction
CPT/HCPCS: 36415; 80048; 85014; 85018; 85610; 85730; 86850; 86900; 86901; 93005

== ENCOUNTER 2025-09-24 01:55 | Day surgery (SDC) | payer OTHER, SELFPAY ==
--- NOTE | 2025-09-21 07:01 | PM.IMHP ---
H&P: HPI History of Present Illness Date/Time: 09/21/25 07:01 Chief Complaint: Left ovarian cyst Narrative: This is a 59-year-old female with a 5.5cm cyst left. She has pain and discomfort. She has had testing and which proved this to be a suspected benign lesion. Risks and benefits reviewed including not exclusive of , aspiration pneumonia, bleeding, transfusion, perforation injury to bowel, bladder, ureters, or other internal organs with need for open laparotomy. She received the ACOG handout entitled laparoscopy. She had all questions answered. She asked to proceed Review of Systems Review of Systems: 12 systems were reviewed and are negative except for as per HPI. [facility] Past Medical History Medical History Adenomatous colon polyp Adnexal cyst Gastritis Ischemic cardiomyopathy With improved ejection fraction. Anterior wall myocardial infarction (05/2023) Status post PCI and stent to the LAD. Coronary artery disease Chronic kidney disease, stage 3 Hyperlipidemia Depression Anxiety Hypertension Surgical History Surgical History History of coronary artery stent placement (05/2023) History of cardiac catheterization (05/2023) History of cholecystectomy (2014) Family History Family History Mother Family history of kidney disease Family history of congestive heart failure Other Family history of allergic disorder Family history of cardiovascular disease Family history of malignant neoplasm Social History Social History Social History: Surrogate medical decision maker: Rodrigue Marroquin, spouse. Code status: Full code. Smoking packs per day: 0.5 Smoking cigarettes per day: 10.0 Years smoked: 40 Smoking pack-years: 20.00 Smoking status: Current every day smoker Tobacco type: cigarettes Alcohol intake: never Substance use: never Substance use type: does not use Do You Feel Safe in your Home?: Yes Lack of Transportation: No Lack of Food: Never True Current Housing: I Have Housing Concerned About Future Housing: No Difficulty Paying Gas/Electric Bills: No Difficulty Paying for Meds: No Currently Unemployed: No Education: Bachelor's Degree Difficulty w/ Childcare or Family Care: No Living arrangements: with family Spiritual care concerns: No Meds Home Medications and Allergies Home Medications ?Medication ?Instructions ?Recorded ?Confirmed ?Type alprazolam 0.25 mg tablet 0.25 mg PO Q6H PRN anxiety 10/03/19 07/16/25 History venlafaxine 150 mg 150 mg PO DAILY 10/03/19 07/16/25 History capsule,extended release 24 hr cetirizine 10 mg tablet (Zyrtec) 10 mg PO DAILY PRN Allergic 05/12/24 07/16/25 History Symptoms carvedilol 6.25 mg tablet 6.25 mg PO Q12H 04/19/25 07/16/25 History fluticasone propionate 50 2 spray intranasal DAILY chronic 04/19/25 07/16/25 Rx mcg/actuation nasal seasonal allergic rhinitis #18 mL spray,suspension (Flonase Allergy Relief) rosuvastatin 20 mg tablet 20 mg PO DAILY 04/19/25 07/16/25 History ofloxacin 0.3 % eye drops 4 drp otic (ear) TID PRN chronic 07/08/25 07/16/25 Rx otitis media with perforation #10 mL Allergies Allergy/AdvReac Type Severity Reaction Status Date / Time No Known Allergies Allergy Verified 07/16/25 12:24 Exam Const: General: cooperative, healthy appearing, comfortable and overweight HENMT: Head: normal to inspection Resp: Effort & Inspection: normal respiratory effort Cardio: Rate: regular rate Rhythm: regular rhythm Heart sounds: S1 normal heart sound present and S2 normal heart sound present GI: Inspection: normal to inspection : External Female Exam: normal external appearance Speculum Exam - Vagina: normal appearance of the vagina Speculum Exam - Cervix: normal appearance of the cervix Bimanual exam- vagina & uterus: uterine shape normal Bimanual Exam- Adnexa, other: Adnexal mass present on the left Assessment and Plan Assessment and plan (1) Left ovarian cyst: Code(s): N83.202 - Unspecified ovarian cyst, left side Status: Acute Plan Proceed with laparoscopic left salpingo-oophorectomy
[2025-09-22 09:21] VITALS: BMI 36.1
--- NOTE | 2025-09-22 09:32 | PC.NURSE ---
[facility] has started construction of its new state of the art ER which will open Spring 2026. With this, we anticipate parking may be a challenge for some our surgical patients and families. Parking spaces are limited but are available for all Surgical, obstetrics, and ER patients sharing this lot. If you arrive and find you are having a hard time finding a parking space, please note that we understand the challenges, please drive around the hospital and park near Hospital Entrance 1. When you enter this entrance, you can ask a volunteer to direct or take you back to the surgical waiting area to check in. We appreciate everyone?s understanding of these expected challenges while we build for your future. Report to the Outpatient Waiting Room, entrance under the green pavilion located off [address], at time _0730_ on date _[id number]_. Planned Procedure Time: _0930_.? Time changes happen often and if your time is changed the preop area will call you the afternoon before. - You and your visitor will be asked to self-screen and do not enter if you have any COVID symptoms. Please call surgeon if you need to reschedule. - A mask is optional within the hospital at this time. Patients may have clear liquids (water, carbonated beverages, clear teas, apple juice) until 3 hours prior to surgery with a maximum of 20 ounces. - No food from midnight until time of surgery and no smoking, or chewing tobacco (or any form of nicotine). No chewing gum, candy or mints. Take only the following medications with a SIP of water on the morning of surgery: __Venlafaxine, Carvidilol, and if needed Flonase and or Alprazolam. DO NOT STOP ANY OF YOUR OTHER PRESCRIPTION MEDICATIONS PRIOR TO SURGERY EXCEPT THE FOLLOWING Hold all vitamins and supplements for 3 days per anesthesiologist. Medications to discontinue per physician Date to take last dose Please no make-up, nail cymraes, hairspray, perfume, deodorant, or body powder the day of surgery.? No jewelry (including any body piercings) or valuables the day of surgery, leave them at home.? Please take a shower or bath the night before, or the morning of, surgery with an antibacterial soap.? Wear comfortable, loose fitting clothing.? - Jewelry must be removed prior to entering the operating room.? Rings and piercings that are not removed may be cut off. - The hospital will not accept responsibility for valuables.? - Please leave all valuables, including medications, at home the day of surgery. If you are going home after surgery, a licensed van driver helper must drive you home.? - NO public transportation without another adult if you receive anesthesia. - We recommend that an adult stay with you for 24 hours following discharge. - We also recommend that you do not drive, make important decision, drink alcoholic beverages, or take any drugs that were not prescribed by your health care provider for at least 24 hours after your discharge time. Follow any additional instructions given to you from your surgeon. Telephone instructions given to _Margie__and asked if any additional questions and then verbalized understanding. Patient advised to call surgeon office or pre surgery nurse liaison [phone] if any additional questions.
--- OUTSIDE RECORDS SUMMARY | 2025-09-24 02:23 | XMS_ITS | Clinical Summary ---
Author Organization [facility] Address [address] [place] [address] Care Team Providers Care Development Vice President Name Role Phone Unavailable Primary Care Provider [...] 2016 INFLUENZA VACCINE (#1) 2025 [address]
--- NOTE | 2025-09-24 06:36 | WPDHPUPDATE1 ---
History and Physical Update Update Date/Time: 09/24/25 06:36 History and Physical has been reviewed, including an updated exam of the patient. There are NO changes in the patient's condition. Risks, benefits, and alternatives have been discussed and questions answered. Patient agrees to proceed with procedure.
[2025-09-24 07:35] VITALS: BP 142/82; PULSE 85; RESP 18; TEMP 36.2; O2SAT 97
--- NOTE | 2025-09-24 07:47 | WPDANESEPPF ---
Anes - Initial Pre Proc Eval Procedure: Operation Date: 09/24/25 09:30 Proposed Procedures p Laparoscopic Left Salpingo oophorectomy - Nahid Andre MD Date/Time: 09/24/25 07:47 Surgeon: Nahid Andre MD Pre Op Diagnosis: pain, left ovarian cyst Patient Data Age: 59 Gender: F Height: 1.55 m Weight: 86.8 kg Allergies Allergy/AdvReac Type Severity Reaction Status Date / Time No Known Allergies Allergy Verified 09/22/25 09:20 Home Medications ?Medication ?Instructions ?Recorded ?Confirmed ?Type alprazolam 0.25 mg tablet 0.25 mg PO Q6H PRN anxiety 10/03/19 09/22/25 History venlafaxine 150 mg 150 mg PO DAILY 10/03/19 09/22/25 History capsule,extended release 24 hr cetirizine 10 mg tablet (Zyrtec) 10 mg PO DAILY PRN Allergic 05/12/24 09/22/25 History Symptoms carvedilol 6.25 mg tablet 6.25 mg PO Q12H 04/19/25 09/22/25 History fluticasone propionate 50 2 spray intranasal DAILY chronic 04/19/25 09/22/25 Rx mcg/actuation nasal seasonal allergic rhinitis #18 mL spray,suspension (Flonase Allergy Relief) rosuvastatin 20 mg tablet 20 mg PO DAILY 04/19/25 09/22/25 History hydrocodone 5 mg-acetaminophen 325 1 tablet PO Q4H PRN pain #20 tabs 09/24/25 Rx mg tablet Patient hx anesthesia problems: none Family hx anesthesia problems: none Results Review: All pre-operative results and documents have been reviewed as part of the pre-operative evaluation[facility] Past Medical History Medical History Adenomatous colon polyp Adnexal cyst Gastritis Ischemic cardiomyopathy With improved ejection fraction. Anterior wall myocardial infarction (05/2023) Status post PCI and stent to the LAD. Coronary artery disease Chronic kidney disease, stage 3 Hyperlipidemia Depression Anxiety Hypertension Surgical History Surgical History History of coronary artery stent placement (05/2023) History of cardiac catheterization (05/2023) History of cholecystectomy (2014) Family History Family History Mother Family history of kidney disease Family history of congestive heart failure Other Family history of allergic disorder Family history of cardiovascular disease Family history of malignant neoplasm Social History Social History Social History: Surrogate medical decision maker: Rodrigue Marroquin, spouse. Code status: Full code. Smoking packs per day: 0.5 Smoking cigarettes per day: 10.0 Years smoked: 40 Smoking pack-years: 20.00 Smoking status: Current every day smoker Tobacco type: cigarettes Alcohol intake: current Substance use: former Substance use type: marijuana Other substance usage details: Years ago Do You Feel Safe in your Home?: Yes Lack of Transportation: No Lack of Food: Never True Current Housing: I Have Housing Concerned About Future Housing: No Difficulty Paying Gas/Electric Bills: No Difficulty Paying for Meds: No Currently Unemployed: No Education: Bachelor's Degree Difficulty w/ Childcare or Family Care: No Living arrangements: with family Spiritual care concerns: No Anes - Eval Final PreProcedure Day of Procedure 09/24/25 07:47 Patient weight: obese Heart: regular rate and rhythm Lungs: clear to auscultation Airway: Mallampati scale class II Neurological: alert and oriented Last oral intake: >/= 8 hours ASA classification: III Emergent: no Anesthetic plan: proceed Anesthesia type and monitoring: general ETT Results Review: All pre-operative results and documents have been reviewed as part of the pre-operative evaluation. Informed Consent: The patient's anesthetic plan and its attendant risks and benefits were discussed with the patient/family/POA. Questions were solicited and answers provided to the satisfaction of the patient/family/POA.
[2025-09-24] MEDS: ACETAMINOPHEN 500 MG TABLET 1000 MG PO (07:50)
[2025-09-24] MEDS: LACTATED RINGERS 1,000 ML 30 ML IV CONT (07:55)
[2025-09-24] MEDS: KETOROLAC 15 MG/ML VIAL (*BKC) IV PUSH (08:00)
--- NOTE | 2025-09-24 09:48 | S_PTH ---
PATIENT: Margie Marroquin LOC: [facility] U#:[id number] AGE/SX: 59/F ROOM: RE09/24/[address]: Nahid Andre MD : 1965 BED: DIS: 09/24/2025 SPEC #: [id number] RECD: 09/24/25 11:18 STATUS: EL REQ #: [id number] ALLYN: 09/24/25 09:[address]: Nahid Love DEPT: [facility] Surgical RECD BY: Kym Tiwari ENTERED: 09/24/25 11:19 SP TYPE: Surgical OTHR DR: John Murphy, PA Tissues: A - Ovary Procedures: Hematoxylin and Eosin Stain Gross and Microscopic Level 4
--- NOTE | 2025-09-24 09:51 | P.OP_ITS ---
Procedure Note - Detailed Date of Procedure 09/24/25 Pre-op Diagnosis pain, left ovarian cyst Post-op Diagnosis Same Procedure Performed Laparoscopic left salpingo-oophorectomy Surgeon Nahid Andre MD Anesthesia General Indications 59-year-old female with complex left ovarian cyst Findings Uterus was small with a small fibroid. There was some tattooing splatter in the right lower quadrant. Left complex ovarian cyst appeared to be an endometrial. Normal-appearing right ovary and tube Description of Procedure Patient was prepped draped in the normal sterile fashion placed in the dorsal lithotomy position. Under excellent general trach anesthesia weighted speculum placed in posterior fornix vagina. Anterior lip of cervix grasped with a single-tooth tenaculum Brown's cannula inserted the cervix and attached to the single-tooth. This would be used later for uterine manipulation. After emptying the bladder clear urine, the weighted speculum was removed the gloves were changed. A supraumbilical incision made the Veress needle passed in the abdomen. Abdomen filled with CO2 gas [id number]. The 5mm trocar advanced under direct visualization assuring no injury patient placed in Trendelenburg and a suprapubic incision made 5mm trocar advanced under direct visualization assuring no injury. The left ovary and tube were abnormal as noted the remainder of the pelvis appeared within normal limits there was tattooing the bladder from previous colon the tattooing. The infundibulopelvic structure was skeletonized clamping burning cutting and then bringing this through the left core lower pal drant incision with a an Endo-Catch no other abnormalities were seen irrigation undertaken until clear hemostasis was assured. The instruments withdrawn. The incisions were then closed with 4-0 Monocryl and glue. The patient was awakened went recovery in satisfactory condition. All sponge, needle, instrument counts were correct. There were no immediate complications Estimated Blood Loss 5 Drains No Packing No Pathology Yes Complications No immediate complications Condition Stable Disposition PACU
[2025-09-24 09:58] VITALS: BP 92/73; PULSE 62; RESP 16; TEMP 36.2; O2SAT 92
[2025-09-24 10:13] VITALS: BP 111/78; PULSE 54; RESP 14; O2SAT 100
[2025-09-24] MEDS: fentaNYL CITRATE INJ (*CRX) 100 MCG/2 ML VIAL 25 MCG IV PUSH (10:19)
[2025-09-24 10:24] VITALS: BP 137/55; PULSE 46; RESP 12; O2SAT 97
[2025-09-24 10:35] VITALS: BP 145/82; PULSE 60; RESP 18
[2025-09-24] MEDS: oxyCODONE HCL (*CRX) 5 MG TAB IR PO (10:46)
[2025-09-24 11:05] VITALS: BP 107/72; PULSE 52; RESP 16
== END 2025-09-24 11:10 | disposition home or self-care (01) ==
PROVIDERS: PCP Physician Assistant; Visit Provider Obstetrics & Gynecology
PROC: (CPT 49320; principal; 2025-09-24 09:30)
DX: N80.122 Deep endometriosis of left ovary (principal); D25.9 Leiomyoma of uterus, unspecified; F17.210 Nicotine dependence, cigarettes, uncomplicated; E66.9 Obesity, unspecified; Z68.36 Body mass index [BMI] 36.0-36.9, adult
CPT/HCPCS: 58661; 88305; A9270; J1100; J1885; J2003; J2250; J2405; J2704; J3010; J7030; J7120

== ENCOUNTER 2025-10-18 00:40 | Day surgery (SDC) | payer OTHER, SELFPAY ==
[2025-07-16 12:27] VITALS: BMI 37.0
--- OUTSIDE RECORDS SUMMARY | 2025-10-18 00:42 | XMS_ITS | Clinical Summary ---
Author Organization [facility] Address [address] [place] [address] Care Team Providers Care Faculty Dean Name Role Phone Unavailable Primary Care Provider [...] 2016 INFLUENZA VACCINE (#1) 2025 [address]
[2025-10-18 06:54] VITALS: BP 149/76; PULSE 83; RESP 17; TEMP 36.7; O2SAT 100; BMI 36.6
--- NOTE | 2025-10-18 06:54 | WPDANESEPPF ---
Anes - Initial Pre Proc Eval Procedure: Operation Date: 10/18/25 08:00 Proposed Procedures p Screening Colonoscopy - Mario Townsend MD Date/Time: 10/18/25 06:54 Surgeon: Mario Townsend MD Pre Op Diagnosis: Personal history of colon polyps, unspecified Patient Data Age: 59 Gender: F Height: 1.55 m Weight: 89 kg Allergies Allergy/AdvReac Type Severity Reaction Status Date / Time No Known Allergies Allergy Verified 10/18/25 06:51 Home Medications ?Medication ?Instructions ?Recorded ?Confirmed ?Type alprazolam 0.25 mg tablet 0.25 mg PO Q6H PRN anxiety 10/03/19 09/22/25 History venlafaxine 150 mg 150 mg PO DAILY 10/03/19 10/18/25 History capsule,extended release 24 hr cetirizine 10 mg tablet (Zyrtec) 10 mg PO DAILY PRN Allergic 05/12/24 10/18/25 History Symptoms carvedilol 6.25 mg tablet 6.25 mg PO Q12H 04/19/25 10/18/25 History fluticasone propionate 50 2 spray intranasal DAILY chronic 04/19/25 10/18/25 Rx mcg/actuation nasal seasonal allergic rhinitis #18 mL spray,suspension (Flonase Allergy Relief) rosuvastatin 20 mg tablet 20 mg PO DAILY 04/19/25 10/18/25 History hydrocodone 5 mg-acetaminophen 325 1 tablet PO Q4H PRN pain #20 tabs 09/24/25 09/27/25 Rx mg tablet Patient hx anesthesia problems: none Family hx anesthesia problems: none Results Review: All pre-operative results and documents have been reviewed as part of the pre-operative evaluation. [facility] Past Medical History Medical History Adenomatous colon polyp Adnexal cyst Gastritis Ischemic cardiomyopathy With improved ejection fraction. Anterior wall myocardial infarction (05/2023) Status post PCI and stent to the LAD. Coronary artery disease Chronic kidney disease, stage 3 Hyperlipidemia Depression Anxiety Hypertension Surgical History Surgical History History of coronary artery stent placement (05/2023) History of cardiac catheterization (05/2023) History of cholecystectomy (2014) Family History Family History Mother Family history of kidney disease Family history of congestive heart failure Other Family history of allergic disorder Family history of cardiovascular disease Family history of malignant neoplasm Social History Social History Social History: Surrogate medical decision maker: Rodrigue Marroquin, spouse. Code status: Full code. Smoking packs per day: 0.5 Smoking cigarettes per day: 10.0 Years smoked: 40 Smoking pack-years: 20.00 Smoking status: Current every day smoker Tobacco type: cigarettes Alcohol intake: current Substance use: former Substance use type: marijuana Other substance usage details: Years ago Lack of Transportation: No Lack of Food: Never True Current Housing: I Have Housing Concerned About Future Housing: No Difficulty Paying Gas/Electric Bills: No Difficulty Paying for Meds: No Currently Unemployed: No Education: Bachelor's Degree Difficulty w/ Childcare or Family Care: No Living arrangements: with family Spiritual care concerns: No Anes - Eval Final PreProcedure Day of Procedure 10/18/25 06:54 Patient weight: obese Heart: regular rate and rhythm Lungs: clear to auscultation Airway: Mallampati scale class II Neurological: alert and oriented Last oral intake: >/= 8 hours ASA classification: III Emergent: no Anesthetic plan: proceed Anesthesia type and monitoring: general GIVS and standard monitoring Results Review: All pre-operative results and documents have been reviewed as part of the pre-operative evaluation. Informed Consent: The patient's anesthetic plan and its attendant risks and benefits were discussed with the patient/family/POA. Questions were solicited and answers provided to the satisfaction of the patient/family/POA.
[2025-10-18] MEDS: LACTATED RINGERS 1,000 ML 150 ML IV CONT ×2 (07:07→07:20)
--- NOTE | 2025-10-18 07:52 | PM.HPGS ---
History of Present Illness History of Present Illness Consent: Risks, benefits, and alternatives have been discussed and questions answered. Patient agrees to proceed with procedure. Chief complaint: Personal history of colon polyps, unspecified Narrative: Margie Marroquin is a 59 year old female with large colon polyp 1 year ago Review of Systems Review of Systems: All systems reviewed & are unremarkable except as noted in HPI and below PMFSH Past Medical History Medical History Adenomatous colon polyp Adnexal cyst Gastritis Ischemic cardiomyopathy With improved ejection fraction. Anterior wall myocardial infarction (05/2023) Status post PCI and stent to the LAD. Coronary artery disease Chronic kidney disease, stage 3 Hyperlipidemia Depression Anxiety Hypertension Surgical History Surgical History History of coronary artery stent placement (05/2023) History of cardiac catheterization (05/2023) History of cholecystectomy (2014) Family History Family History Mother Family history of kidney disease Family history of congestive heart failure Other Family history of allergic disorder Family history of cardiovascular disease Family history of malignant neoplasm Social History Social History Social History: Surrogate medical decision maker: Rodrigue Marroquin, spouse. Code status: Full code. Smoking packs per day: 0.5 Smoking cigarettes per day: 10.0 Years smoked: 40 Smoking pack-years: 20.00 Smoking status: Current every day smoker Tobacco type: cigarettes Alcohol intake: current Substance use: former Substance use type: marijuana Other substance usage details: Years ago Lack of Transportation: No Lack of Food: Never True Current Housing: I Have Housing Concerned About Future Housing: No Difficulty Paying Gas/Electric Bills: No Difficulty Paying for Meds: No Currently Unemployed: No Education: Bachelor's Degree Difficulty w/ Childcare or Family Care: No Living arrangements: with family Spiritual care concerns: No Meds Home Medications and Allergies Home Medications ?Medication ?Instructions ?Recorded ?Confirmed ?Type alprazolam 0.25 mg tablet 0.25 mg PO Q6H PRN anxiety 10/03/19 09/22/25 History venlafaxine 150 mg 150 mg PO DAILY 10/03/19 10/18/25 History capsule,extended release 24 hr cetirizine 10 mg tablet (Zyrtec) 10 mg PO DAILY PRN Allergic 05/12/24 10/18/25 History Symptoms carvedilol 6.25 mg tablet 6.25 mg PO Q12H 04/19/25 10/18/25 History fluticasone propionate 50 2 spray intranasal DAILY chronic 04/19/25 10/18/25 Rx mcg/actuation nasal seasonal allergic rhinitis #18 mL spray,suspension (Flonase Allergy Relief) rosuvastatin 20 mg tablet 20 mg PO DAILY 04/19/25 10/18/25 History hydrocodone 5 mg-acetaminophen 325 1 tablet PO Q4H PRN pain #20 tabs 09/24/25 09/27/25 Rx mg tablet Allergies Allergy/AdvReac Type Severity Reaction Status Date / Time No Known Allergies Allergy Verified 10/18/25 06:51 Vital Signs Vital Signs - 24 hr 10/18/25 06:54 Temperature 98.1 F Pulse Rate 83 Respiratory Rate 17 Blood Pressure 149/76 H Pulse Oximetry 100 Oxygen Delivery Room Air Exam Const: General: comfortable and no acute distress HENMT: Face/Nose/Sinus: Normal nares present Eyes: General: appearance normal, both eyes and all related structures Neck: Neck: no JVD Resp: Auscultation: clear to auscultation bilaterally Cardio: Rate: regular rate Rhythm: regular rhythm GI: Inspection: non-distended GI Palp: Yes Soft to palpation Skin: General skin exam: normal color Neuro: General: gait normal Speech: normal speech Extrem: General: normal to inspection Psych: Mental Status: mental status grossly normal Assessment and Plan Assessment and plan (1) Adenomatous colon polyp: Code(s): D12.6 - Benign neoplasm of colon, unspecified Status: Acute Assessment and Plan: colonoscopy
--- NOTE | 2025-10-18 08:16 | S_PTH ---
PATIENT: Margie Marroquin LOC: [facility][id number] AGE/SX: 59/F ROOM: RE10/18/[address]: Mario Townsend MD : 1965 BED: DIS: 10/18/2025 SPEC #: [id number] RECD: 10/18/25 10:37 STATUS: EL REFrancesco #: [id number] ALLYN: 10/18/25 08:[address]: Mario Townsend DEPT: [facility] Surgical RECD BY: Kym Tiwari ENTERED: 10/18/25 10:38 SP TYPE: Surgical OTHR DR: John Murphy, PA Tissues: A - Colon Polypectomy B - Colon Polypectomy C - Colon Polypectomy Procedures: Hematoxylin and Eosin Stain Gross and Microscopic Level 4
[2025-10-18 08:18] VITALS: BP 144/53; PULSE 74; RESP 21; O2SAT 96
[2025-10-18 08:28] VITALS: BP 178/95; PULSE 67; RESP 17; O2SAT 100
[2025-10-18 08:38] VITALS: BP 167/72; PULSE 64; RESP 18; O2SAT 99
== END 2025-10-18 08:52 | disposition home or self-care (01) ==
PROVIDERS: PCP Physician Assistant; Referring Provider Internal Medicine Gastroenterology; Visit Provider Internal Medicine Gastroenterology
PROC: 0DJD8ZZ Inspection of Lower Intestinal Tract, Via Natural or Artificial Opening Endoscopic (ICD-10-PCS; CPT 45378; principal; 2025-10-18 08:00)
DX: Z09 Encounter for follow-up examination after completed treatment for conditions other than malignant neoplasm (principal); D12.2 Benign neoplasm of ascending colon; D12.3 Benign neoplasm of transverse colon; D12.5 Benign neoplasm of sigmoid colon; K57.30 Diverticulosis of large intestine without perforation or abscess without bleeding; E78.2 Mixed hyperlipidemia; F41.9 Anxiety disorder, unspecified; F32.A Depression, unspecified; I12.9 Hypertensive chronic kidney disease with stage 1 through stage 4 chronic kidney disease, or unspecified chronic kidney disease; N18.30 Chronic kidney disease, stage 3 unspecified; I25.5 Ischemic cardiomyopathy; I25.2 Old myocardial infarction; I25.10 Atherosclerotic heart disease of native coronary artery without angina pectoris; F17.210 Nicotine dependence, cigarettes, uncomplicated; F12.90 Cannabis use, unspecified, uncomplicated; E66.9 Obesity, unspecified; Z68.36 Body mass index [BMI] 36.0-36.9, adult; Z79.891 Long term (current) use of opiate analgesic; Z90.49 Acquired absence of other specified parts of digestive tract; Z95.5 Presence of coronary angioplasty implant and graft; Z87.19 Personal history of other diseases of the digestive system; Z80.9 Family history of malignant neoplasm, unspecified; Z82.49 Family history of ischemic heart disease and other diseases of the circulatory system
CPT/HCPCS: 45385; 88305; J2704; J7120